=== PATIENT | male | born 1945 | race Caucasian/White ===

== ENCOUNTER 2018-06-05 05:53 | Outpatient (CLI) | payer MEDICARE, OTHER ==
[~2018-06-05] VITALS: Ht 175.3 cm; Wt 120.9 kg
--- NOTE | ~2018-06-05 | HEMODYNAMI ---
PATIENT:RODRIGUEZ BLOOM MEDICAL RECORD: [id number] : 45 LOCATION:[facility] ADMISSION DATE: 06/05/18 Generatedon:06/05/20188:29 Patient name: RODRIGUEZ BLOOM Patient #: [id number] SSN: DO B: 1945 Date of study: 06/05/2018 Page: Of Hemodynamic Procedure Report Patient Data Patient Demographics Procedure consent was obtained First Name: RODRIGUEZ Gender: Male Last Name: WOLF : 1945 Middle Initial: C Age: 73 year(s) Patient #: [id number] Race: Unknown Additional ID: [id number] Contact details [address]: [address] [place] [address] State: [place] City: [place] Zip code: [address] Past Medical History Allergies Allergen Reaction Date Comments Reported Other allergy 06/05/2018 Iodine, Codeine Admission Admission Data Admission Date: 06/05/2018 Admission Time: 5:53 Lab Results Lab Result Date: 06/05/2018 Lab Result Time: 6:30 Biochemistry Name Units Result Min Max BUN mg/dl 18 --(---*)-- 7 18 Creatinine mg/dl 1.1 --(--*-)-- 0.6 1.3 CBC Name Units Result Min Max Hematocrit % 34.3 *-(----)-- 42 54 Hemoglobin g/dl 11.5 *-(----)-- 13.5 17.5 Procedure Procedure Types Cath Procedure Diagnostic Procedure LHC LHC w/Coronaries Aortic Root Angiography Sedation Charges Moderate Sedation up to 15 minutes Procedure Description Procedure Date Procedure Date: 06/05/2018 Procedure Start Time: 8:07 Procedure End Time: 8:26 Procedure Staff Name Function Drew Lyles MD Performing Physician César Monahan RN Nurse Fallon Harris RT Scrub John Rodriguez RT Monitor Procedure Data Cath Procedure Fluoroscopy Diagnostic fluoroscopy Total fluoroscopy Time: 4.5 time: 4.5 min min Diagnostic fluoroscopy Total fluoroscopy dose: dose: 1398 mGy 1398 mGy Contrast Material Contrast Material Type Amount (ml) Isovue 300 104 Entry Location Entry Primary Successful Side Size Upsize Upsize Entry Closure Tuttle ccessful Closure Location (Fr) 1 (Fr) 2 (Fr) Remarks Device Remarks Radial Right 6 Fr Mechanical artery Short Compression Estimated blood loss: 5 ml Diagnostic catheters Device Type Used For End Catheter Placement DIAGNOSTIC Marco A 110cm Procedure 5Fr catheter ([id number]) DIAGNOSTIC Loleta 110cm 5 Procedure Fr catheter ([id number]) Procedure Complications No complications Procedure Medications Medication Administration Route Dosage 0.9% NaCl I.V. 100 ml/hr Oxygen etCO2 Nasal cannula 2 l/min Heparin Flush Bag added to field 2 bags (1000units/500ml NS) Lidocaine 2% added to field 20 Radial Cocktail added to field 1 syringe (Verapomil 2mg/Nitro 400mcg/Heparin 1500units) Versed I.V. 1 mg Fentanyl I.V. 50 mcg Versed I.V. 1 mg Fentanyl I.V. 50 mcg Radial Cocktail I.A. 1 syringe (Verapomil 2mg/Nitro 400mcg/Heparin 1500units) Versed I.V. 2 mg Hemodynamics Rest HGB: 11.5 (g/dl) Heart Rate: 67 (bpm) Pressure Samples Time Site Value (mmHg) Purpose Heart Use Rate(bpm) 8:10 LV 139/-2,8 Snapshot 91 8:10 LV 126/5,14 Snapshot 87 8:11 AO 108/60(80) Pullback 77 8:11 LV 139/1,11 Pullback 77 Gradients Valve Time Site 1 Site 2 Mean SEP/DFP Peak To Heart Use (mmHg) (sec/min) Peak Rate (mmHg) (bpm) Aortic 8:11 LV AO 9 22 31 77 139/1,11 108/60(80) Calculations Valve P-P Mean Valve Index Valve Source Name Gradient Area Flow (cm2) Aortic 31 9 31 9 Snapshots Pre Cath Intra NCS Post Cath Vital Signs Time Heart Resp SPO2 etCO2 NIBP (mmHg) Rhythm Pain Sedation Rate (ipm) (%) (mmHg) Status Level (bpm) 7:51:52 65 16 95 0 155/82(119) NSR 0 (11) 10(A) , No pain 7:56:34 65 20 94 33 147/82(121) NSR 0 (11) 10(A) , No pain 8:01:21 64 15 94 39 139/72(105) NSR 0 (11) 10(A) , No pain 8:06:08 65 15 95 35.3 145/77(114) NSR 0 (11) 10(A) , No pain 8:11:36 77 16 95 0 120/49(78) NSR 0 (11) 10(A) , No pain 8:16:12 68 15 93 31.5 117/70(95) NSR 0 (11) 10(A) , No pain 8:20:53 65 16 94 40.5 131/72(107) NSR 0 (11) 9(A) , No pain 8:25:37 65 16 95 15.7 142/74(110) NSR 0 (11) 9(A) , No pain Medications Time Medication Route Dose Verified Delivered Reason Notes Effectiveness by by 7:56:11 0.9% NaCl I.V. 100 César César Per ml/hr Taniya Monahan physician RN RN 7:56:20 Oxygen etCO2 2 l/min César César Per Nasal Taniya Monahan physician cannula RN RN 7:56:31 Heparin Flush added 2 bags César César used for Bag to Lorigan Taniya procedure (1000units/500ml RN RN NS) 7:56:41 Lidocaine 2% added 20ml César César for local to vial Lorigan Lisetigan anesthetic RN RN 7:56:51 Radial Cocktail added 1 César César used for (Verapomil to syringe Lorigan Lisetigan procedure 2mg/Nitro RN RN 400mcg/Heparin 1500units) 7:57:00 Versed I.V. 1 mg César César for sedation Taniya Monahan RN RN 7:57:07 Fentanyl I.V. 50 mcg César César for sedation Taniya Monahan RN RN 8:06:54 Versed I.V. 1 mg César César for sedation Taniya Monahan RN RN 8:07:06 Fentanyl I.V. 50 mcg César César for sedation Taniya Monahan RN RN 8:08:59 Radial Cocktail I.A. 1 César Drew for (Verapomil syringe Taniya anderson 2mg/Nitro RN 400mcg/Heparin 1500units) 8:09:32 Versed I.V. 2 mg César Lindsey for sedation Taniya Monahan RN training coordinator Log Time Note 7:40:51 Time tracking: Regular hours (M-F 7:00 - 5:00) 7:40:56 Plan of Care:Hemodynamics will remain stable., Cardiac rhythm will remain stable., Comfort level will be maintained., Respiratory function will remain adequate., Patient/ family verbilizes understanding of procedure., Procedure tolerated without complication., Recovers from procedure without complications.. 7:40:59 César Monahan RN sent for patient. Start room use. 7:46:17 Patient received from Pre/Post Procedure Room to CCL 1 Alert and oriented. Tansferred to table in Supine position. 7:46:19 Warm blankets applied, and mary hugger turned on for patient comfort. 7:46:19 Correct patient and procedure confirmed by team. 7:46:21 Signed procedure consent form obtained from patient. 7:46:22 ECG and BP/O2 sat monitors applied to patient. 7:50:54 Vital chart was started 7:51:13 H&P Date Dictated: 05/29/2018 Within 30 days and on chart., H&P Addendum completed by physician on day of procedure. (MUST COMPLETE FOR ALL OUTPATIENTS). 7:51:14 Pre-procedure instructions explained to patient. 7:51:15 Pre-op teaching completed and patient verbalized understanding. 7:51:16 Family in waiting room. 7:51:17 Patient NPO since Midnight. 7:51:37 Patient allergic to Other allergyIodine, Codeine 7:51:39 Is the patient allergic to Iodine/contrast media? Yes. 7:51:40 Was the patient premedicated? Yes 7:51:44 Is patient on blood thinner?No 7:51:46 Patient diabetic? Yes. 7:51:47 If diabetic: On Metformin? Yes 7:51:51 If on Metformin: Last Dose? 06/03/2018 7:51:55 Previous problem with sedation/anesthesia? No ? 7:51:56 Snore? Yes 7:51:57 Sleep apnea? No 7:51:57 Deviated septum? No 7:51:58 Opens mouth fully? Yes 7:51:59 Sticks out tongue? Yes 7:52:03 Airway obstruction? Yes COPD 7:52:07 Dentures? Yes OUT 7:52:11 Modified Jesus Alberto's test Ulnar < 7 seconds 7:52:15 Patient pain scale 0/10 ?. 7:52:24 IV patent on arrival in left hand with 0.9% NaCl at [facility]. 7:53:38 Lab Result : BUN 18 mg/dl 7:53:38 Lab Result : Hemoglobin 11.5 g/dl 7:53:38 Lab Result : Creatinine 1.1 mg/dl 7:53:38 Lab Result : Hematocrit 34.3 % 7:53:40 Lab results completed and on chart. 7:53:42 Right Radial & Right Groin area was prepped with chlora-prep and draped in sterile fashion 7:53:43 Alarms reviewed by R. N. 7:53:43 Sharps counted by scrub and verified by R.N. 7:53:45 Use device set Radial Dx or PCI 7:53:46 ACIST Syringe (18042) opened to sterile field. 7:53:47 Medline Cath Pack ([id number]) opened to sterile field. 7:53:47 Bag Decanter (2002S) opened to sterile field. 7:53:48 DIAGNOSTIC WIRE .035 260cm J wire (989949) opened to sterile field. 7:53:48 ACIST Hand Control (90510) opened to sterile field. 7:53:49 ACIST Manifold (29350) opened to sterile field. 7:53:49 Tegaderm 4 x 4 (1626W) opened to sterile field. 7:53:50 MBrace Wrist Support ([id number]) opened to sterile field. 7:53:51 SHEATH 6Fr Prelude Radial ([id number]) opened to sterile field. 7:53:56 Baseline sample Acquired. 7:54:01 Rhythm: sinus rhythm 7:54:03 Full Disclosure recording started 7:54:06 Physician arrived 7:54:07 --------ALL STOP TIME OUT------ 7:54:07 Final Timeout: patient, procedure, and site verified with staff and physician. All members of the team are in agreement. 7:54:09 Right Radial & Right Groin site verified by team. 7:54:11 Physical assessment completed. ASA score P 2 - A patient with mild systemic disease as per Drew Lyles MD. 7:54:15 Sedation plan: IV Moderate Sedation Medication:Versed, Fentanyl 7:56:11 0.9% NaCl 100 ml/hr I.V. was administered by César Monahan RN; Per physician; 7:56:20 Oxygen 2 l/min etCO2 Nasal cannula was administered by César Monahan RN; Per physician; 7:56:31 Heparin Flush Bag (1000units/500ml NS) 2 bags added to field was administered by César Monahan RN; used for procedure; 7:56:41 Lidocaine 2% 20ml vial added to field was administered by César Monahan RN; for local anesthetic; 7:56:51 Radial Cocktail (Verapomil 2mg/Nitro 400mcg/Heparin 1500units) 1 syringe added to field was administered by César Monahan RN; used for procedure; 7:57:00 Versed 1 mg I.V. was administered by César Monahan RN; for sedation; 7:57:07 Fentanyl 50 mcg I.V. was administered by César Monahan RN; for sedation; 8:00:47 Zero performed for pressure channel P1 8:00:50 Zero performed for pressure channel P1 8:06:54 Versed 1 mg I.V. was administered by César Monahan RN; for sedation; 8:07:06 Fentanyl 50 mcg I.V. was administered by César Monahan RN; for sedation; 8:07:49 Procedure started. 8:07:52 Local anesthetic to right radial artery with Lidocaine 2% by Drew Lyles MD.INITIAL ACCESS ONLY 8:08:41 A 6 Fr Short sheath was inserted into the Right Radial artery 8:08:49 A DIAGNOSTIC Marco A 110cm 5Fr catheter ([id number]) was advanced over the wire and used for Procedure. 8:08:59 Radial Cocktail (Verapomil 2mg/Nitro 400mcg/Heparin 1500units) 1 syringe I.A. was administered by Drew Lyles MD; for vasodilation; 8:09:32 Versed 2 mg I.V. was administered by César Monahan RN; for sedation; 8:10:59 LV hemodynamics recorded. 8:11:03 Injector settings: Ml/sec: 5, Volume: 15, 8:11:11 EF : 50 % 8:11:12 LV gram done using MELENDREZ 8:12:18 RCA angiography performed. 8:15:39 LCA angiography performed. 8:16:37 Catheter exchanged over wire. 8:16:42 A DIAGNOSTIC Loleta 110cm 5 Fr catheter ([id number]) was advanced over the wire and used for Procedure. 8:18:26 LCA angiography performed. 8:20:31 DXT 5 PIG opened to sterile field. 8:20:35 Catheter exchanged over wire. 8:21:05 A DIAGNOSTIC DXT 5 PIG 5 Fr catheter was advanced over the wire and used for Procedure. 8:22:38 Aortic Root visualized 8:22:47 Catheter removed. 8:23:27 TR BAND Large ([id number]) opened to sterile field. 8:23:35 Sheath removed intact; hemostasis achieved with Mechanical Compression to the Right Radial artery. 8:23:37 Procedure ended.(Physican Out) 8:24:52 Fluoroscopy time 04.50 minutes. 8:24:56 Fluoroscopy dose: 1398 mGy 8:24:56 Flurop Dose total: 1398 8:25:00 Contrast amount:Isovue 300 104ml. 8:25:02 Sharps counted by scrub and verified by R.N. 8:25:04 TR band inflated with 12cc of air. 8:25:05 Insertion/operative site no bleeding no hematoma. 8:25:07 Post Procedure Pulses reassessed and unchanged 8:25:10 Post-procedure physical assessment completed. ASA score P 2 - A patient with mild systemic disease as per Drew Lyles MD. 8:25:13 Post procedure rhythm: unchanged. 8:25:15 Estimated blood loss: 5 ml 8:25:17 Post procedure instruction explained to patient.Patient verbalizes understanding. 8:25:17 Patient needs reinforcement of post procedure teaching. 8:25:24 Procedure type changed to Cath procedure, Diagnostic procedure, LHC, LHC w/Coronaries, Aortic Root Angiography, Sedation Charges, Moderate Sedation up to 15 minutes 8:26:12 Procedure and supply charges have been captured, reviewed, submitted and are correct. 8:26:14 Procedure Complication : No complications 8:26:17 Vital chart was stopped 8:26:17 See physician's report for complete and final results. 8:26:18 Report given to Pre/Post Procedure Room. 8:26:21 Patient transfered to Pre/Post Procedure Room with Stretcher. 8:26:23 Procedure ended. 8:26:23 Full Disclosure recording stopped 8:26:28 End room use (Document Last) Device Usage Item Name Manufacture Quantity Catalog Number Hospital Part Current M inimal Lot# / Charge Number Stock Stock Serial# Code ACIST Syringe Acist 1 78132 221426 303401 829037 2 0 (73379) Medical [employer] Inc Medline Cath Cardinal 1 [id number] 747769 79666 664587 5 Pack Health ([id number]) Bag Decanter Microtek 1 2001S 304384 36140 102743 5 (2001S) Medical Inc. DIAGNOSTIC WIRE St Fabien 1 311501 215951 403935 244997 3 0 .035 260cm J wire (324973) ACIST Hand Acist 1 53680 969391 113926 453422 5 Control (45149) Medical [employer] Inc ACIST Manifold Acist 1 68340 723896 159971 783296 5 (73679) Medical Systems Inc Tegaderm 4 x 4 3M 1 1626W 259846 608974 821325 5 (1626W) MBrace Wrist Advanced 1 140-0250-00 958139 89794 185731 5 Support Vascular ([id number]) Dynamics SHEATH 6Fr Merit 1 [id number] 146987 936345 927201 5 Prelude Radial Medical ([id number]) DIAGNOSTIC Terumo 1 40-5023 573231 576532 267913 5 Marco A 110cm 5Fr catheter (637882) DIAGNOSTIC Terumo 1 40-5013 886870 659273 998236 5 Loleta 110cm 5 Fr catheter (932418) DXT 5 PIG Unknown 1 0 0 TR BAND Large Terumo 1 [id number] 724438 508996 279465 4 0 ([id number]) Signature Audit [place] Stage Time Signature Unsigned Intra-Procedure 06/05/2018 John Rodriguez 8:29:47 AM RT(R) Signatures Monitor : John Rodriguez RT Signature : Date : Time : [facility] [address] [facility] [place] [address]
[2018-06-05] MEDS ORDERED: FLOMAX0.4 MG PO (06:17)
[2018-06-05] MEDS ORDERED: ZOCOR40 MG PO (06:17)
[2018-06-05] MEDS ORDERED: CELEXA20 MG PO (06:17)
[2018-06-05] MEDS ORDERED: GLUCOPHAGE500 MG PO (06:17)
[2018-06-05] MEDS ORDERED: COREG12.5 MG PO (06:17)
[2018-06-05] MEDS ORDERED: ZESTRIL40 MG PO (06:18)
[2018-06-05] MEDS ORDERED: BAYER CHEWABLE81 MG PO (06:18)
[2018-06-05] MEDS ORDERED: PEPCID AC20 MG PO (06:18)
[2018-06-05] MEDS ORDERED: FLUTICASONE PRO16 GM NASAL (06:18)
[2018-06-05] MEDS ORDERED: OMEPRAZOLE20 M1 PO (06:18)
[2018-06-05] MEDS ORDERED: FISH OIL 1,0001 CA1 PO (06:19)
[2018-06-05] MEDS ORDERED: MULTI-DAY VITAM1 TAB PO (06:19)
[2018-06-05] MEDS ORDERED: VITAMIN B-121000 MCG PO (06:19)
[2018-06-05] MEDS ORDERED: VITAMIN E400 UNI2 PO (06:19)
[2018-06-05 06:44] VITALS: BP 157/74; BMI 39.3
[2018-06-05 06:46] LABS: BASOPHILS 0.3 % (0-2); EOSINOPHILS 0.1 % (0-7); HEMATOCRIT 34.3 % (42.0-54.0); HEMOGLOBIN 11.5 g/dL (13.5-17.5); IMMATURE GRANULOCYTES 0.6 % (0-5); LYMPHOCYTES 13.1 % (15-50); MCH 29.2 pg (26.0-34.0); MCHC 33.5 g/dL (31.0-37.0); MCV 87.1 fL (80.0-100.0); MONOCYTES 9.3 % (2-11); NEUTROPHILS 76.6 % (40-80); PLATELET COUNT 178 10x3/uL (130-400); RBC 3.94 10x6/uL (4.20-6.10); RDW 13.5 % (11.5-14.5)
[2018-06-05 07:14] LABS: ANION GAP 13.9 mmol/L (8-16); CALCIUM 8.9 mg/dL (8.5-10.1); CARBON DIOXIDE 26.5 mmol/L (21.0-32.0); CREATININE - SERUM 1.1 mg/dL (0.6-1.3); POTASSIUM - SERUM 4.4 mmol/L (3.5-5.1)
[2018-06-05 12:35] VITALS: Ht 175.3 cm; Wt 120.9 kg
== END 2018-06-05 12:35 | disposition home or self-care (01) ==
LOC: D.CATH 05:53
PROVIDERS: Internal Medicine Cardiovascular Disease
DX: I25.119 Atherosclerotic heart disease of native coronary artery with unspecified angina pectoris (principal); I08.2 Rheumatic disorders of both aortic and tricuspid valves; Z01.812 Encounter for preprocedural laboratory examination

== ENCOUNTER 2018-06-13 10:00 | Inpatient (IN) | payer MEDICARE, OTHER ==
[~2018-06-13] VITALS: Ht 175.3 cm; Wt 113.8 kg
--- NOTE | ~2018-06-13 | TEE ---
PATIENT:RODRIGUEZ BLOOM MEDICAL RECORD: [id number] LOCATION:[place] [address] AGE OF PATIENT: 73 ADMISSION DATE: 06/17/18 SEX: M REFERRING PHYSICIAN: INTERPRETING PHYSICIAN: SPENCER MELCHOR MD TRANSESOPHAGEAL ECHOCARDIOGRAM Date: 06/17/18 MARTHA CHARGE Y INDICATIONS: CABG PREMEDICATIONS: PATIENT'S RESPONSE PROCEDURE DOPPLER MEASUREMENTS: LVIT LA PA RA LVOT RVOT Asc. Ao AV Gradient Peak AV Mean AV Area MV Gradient Peak MV Mean MV Area INTERPRETATION: Doppler: 2-D: COLOR FLOW DOPPLER NORMAL SALINE STUDY: MISCELLANOUS: DIAGNOSIS: PLAN: Chiller Technician:Bj Cotto Cutter Hot Knife: Tramaine FLOREZ COMMENTS: LAST PATIENT DATE OF SERVICE: 06/17/2018 PROCEDURE: Transesophageal echo evaluation of valvular structures during bypass surgery. FINDINGS: 1. Left ventricular chamber size is within normal limits. Left ventricular systolic function is normal. Overall ejection fraction estimated at 60%. 2. Left atrium, right atrium, and right ventricular chamber sizes are within TRANSESOPHAGEAL ECHOCARDIOGRAM REPORT [id number] RODRIGUEZ BLOOM normal limits. 3. Valvular structures have normal structure and motion. 4. Doppler interrogation only reveals mild mitral regurgitation, no other valvular insufficiency or stenosis. 5. No evidence of pericardial effusion or left ventricular thrombus. TRANSINT:[id number] Voice Confirmation ID: [id number] DOCUMENT ID: [id number] at 0924 CC: [id number] DICTATION DATE: 06/17/18 1109 NIGHT SUPERVISOR: 06/17/18 2344 DIS IN 06/23/18 [place] [id number] [place] [id number]
--- NOTE | ~2018-06-13 | CN ---
PATIENT NAME:RODRIGUEZ BLOOM MEDICAL RECORD: [id number] : 45 LOCATION:[facility] ADMIT DATE: 06/17/18 ACCOUNT: [id number] CONSULTING PHYSICIAN: BRANDON HECK MD REFERRING PHYSICIAN: DEVON VENEGAS MD DATE OF CONSULTATION: 06/18/2018 REASON FOR CONSULTATION: Medical management. HISTORY OF PRESENT ILLNESS: The patient is a 73-year-old gentleman who was referred to ending machine operator in March of this year. He had had shortness of breath as well as chest pain. He was seen and evaluated and felt to be a candidate for 3-vessel coronary artery bypass grafting. He was seen by Dr. Venegas who has performed coronary artery bypass grafting times 3. I have been asked to see the patient since he is a regular patient of [facility] and for medical management. PAST MEDICAL HISTORY: Significant that he has had COPD. He has had hyperlipidemia. He has had diabetes mellitus, gastroesophageal reflux, morbid obesity, BPH. The patient has had a history of asthma. FAMILY HISTORY: Mother had hypertension, also had thyroid disease. Father had Alzheimer's as well as mother having Alzheimer's. ALLERGIES: He has allergies to CODEINE. MEDICATIONS: Have been albuterol 2 puffs q.4 hours p.r.n. shortness of breath, 81 mg aspirin, carvedilol 12.5 p.o. b.i.d., Celexa 20 mg once a day, famotidine 20 mg p.o. q.h.s., fish oil 1000 mg p.o. every day, fluticasone 50 mcg 1 spray in each naris b.i.d., lisinopril 40 mg daily, metformin 500 mg p.o. b.i.d., omeprazole 20 mg b.i.d., simvastatin 40 mg once a day, tamsulosin 0.4 mg b.i.d. SOCIAL HISTORY: The patient is . He is a tier college graduate. He denies any drug use other than 3 beers a day as well as caffeine. He has been a smoker, stopped in 2004. PAST SURGICAL HISTORY: He has had an appendectomy. He has had a cholecystectomy as well. REVIEW OF SYSTEMS: GENERAL: He denies any headaches, seizure or syncope. Denies change in visual or auditory acuity. PULMONARY: He denies any shortness of breath, cough, congestion. CARDIOVASCULAR: As stated above. GASTROINTESTINAL: No chronic nausea, vomiting, melena or hematochezia. GENITOURINARY: No urgency, frequency, or dysuria. PHYSICAL EXAMINATION: VITAL SIGNS: His temperature was 99.1. His pulse is 83, respirations 19, blood pressure 122/63. GENERAL: He is alert. He is oriented times 3. HEENT: Head is normocephalic. No lesions. Ears: TMs clear. Eyes: Pupils equal, round, reactive to light. His extraocular movements are intact. His nasal cavity is clear. Oropharynx clear. NECK: Supple. There is no adenopathy. HEART: Has a regular rate. CONSULT REPORT [id number] RODRIGUEZ BLOOM LUNGS: Clear. CHEST: The patient has a healing medial sternotomy. No active bleeding is noted. Chest tubes are in place. He has had saphenous vein harvest on the right. He has no bleeding noted. LABORATORY DATA: White count is 12.8, hemoglobin 9.8, hematocrit is 29.1, and platelets were 134. Sodium is 135, potassium 4.9, chloride is 100, CO2 is 29.5, BUN 13, creatinine is 1. ASSESSMENT: Status post coronary bypass grafting times 3, history of diabetes, history of hypertension, history of COPD. PLAN: The patient is on Humalog sliding scale, we will continue. We will continue to follow with you. Thanks for the consultation. TRANSINT:[id number] Voice Confirmation ID: [id number] DOCUMENT ID: [id number] BRANDON HECK MD at 0716 CC: [id number] DICTATION DATE: 06/19/18 0758 TEST ENGINEERING MANAGER: 06/19/18 0822 DIS IN 06/23/18 [address] [place] [address]
--- NOTE | ~2018-06-13 | OP ---
PATIENT NAME: RODRIGUEZ BLOOM MEDICAL RECORD: [id number] :45 LOCATION:[facility] ADMISSION DATE:06/17/18 SURGEON: ADONIS NI MD DATE OF OPERATION: 06/17/2018 SURGEON: Adonis Ni MD SUPERVISOR CELL ROOM: SHANNON Cole OPERATIONS PERFORMED: 1. Coronary artery bypass graft times 3 (left internal mammary to LAD, reverse saphenous vein graft from aorta to second diagonal, and aorta to posterior descending artery). 2. Endoscopic saphenous vein harvest. PREOPERATIVE DIAGNOSIS: Coronary disease. POSTOPERATIVE DIAGNOSIS: Coronary disease. ANESTHESIA: General endotracheal anesthesia. ESTIMATED BLOOD LOSS: Total cardiopulmonary bypass with Cell Saver retransfusion. COMPLICATIONS: None. SPECIMENS: None. CONDITION: Stable. DISPOSITION: CV ICU. OPERATIVE FINDINGS: 1. Good quality greater saphenous vein harvested endoscopically from the right lower extremity. 2. Good quality left internal mammary artery. The LAD was a 2.0-mm vessel. Good Doppler signal after anastomosis and after reversal of heparin. 3. Second diagonal was a 2.0-mm vessel. 4. Posterior descending artery 1.5-mm severely diseased vessel. 5. Large fatty heart with left ventricular hypertrophy. 6. Evidence of bullous emphysema, left upper lobe, in a patient with former history of smoking. OPERATIVE INDICATION: Coronary disease. OPERATIVE PROCEDURE IN DETAIL: The patient was brought to the operating suite. General anesthesia was obtained. The patient was prepped and draped. Greater saphenous vein was harvested in the right leg using endoscopic technique. Side branches were divided with electrocautery. The vessel was ligated proximally and distally, and removed. Side branches were clipped. Later, the leg was closed in 2 layers. Median sternotomy incision was made. Subcutaneous tissue was divided by electrocautery. Sternum was divided with a saw. Left hemisternum was elevated. Left pleural cavity was entered. Left internal mammary artery and vein were OPERATIVE REPORT [id number] RODRIGUEZ BLOOM taken down as a pedicle graft. Sternal retractor was placed. Pericardium was opened. Heparin was given. Aorta was cannulated. Dual stage venous cannula was inserted. Internal mammary was clipped distally and made ready for anastomosis. The patient was placed on cardiopulmonary bypass. Sites for distal anastomoses were selected. The patient's temperature was allowed to drip. Cardioplegia needle was inserted in the anterior ascending aorta. The aorta was crossclamped. Cardioplegia was given antegrade and this was repeated at 15-minute intervals including down the completed vein grafts. Distal anastomosis was performed in standard technique and proximal anastomosis in single crossclamp technique with aortic root then de-aired by removing the clamp, then tying the proximal anastomoses, then deairing the vein grafts, and then restoring the flow. Proximal and distal anastomotic sites were inspected for bleeding. Atrial and ventricular pacing wires were placed. The patient was V-paced off cardiopulmonary bypass, but resumed a sinus rhythm with regular rate prior to departure off the operating room. The drains were placed in mediastinum and left pleural cavity. Protamine was given. Thorough irrigation was undertaken. Grafts lay appropriately. The pericardial fat was loosely reapproximated in the midline. Left chest was evacuated and irrigated. Left internal mammary harvest site was ensured to be hemostatic. Sternum was closed with wires. Fascia was closed. Subcutaneous tissue was closed. Skin was closed. Dermabond was placed. Needle and sponge counts were reported as correct. The patient was taken to the ICU in stable condition. TRANSINT:[id number] Voice Confirmation ID: [id number] DOCUMENT ID: [id number] ADONIS NI MD at 1742 CC: SAVANNAH STRONG M.D. [id number] DICTATION DATE: 06/17/18 1353 PASSPORT APPLICATION EXAMINER: 06/17/18 1501 ADM IN [facility] [address] [place] [id number]
[~2018-06-13 10:00] MED LIST: BAYER CHEWABLE81 MG PO; CELEXA20 MG PO; COREG12.5 MG PO; FISH OIL 1,0001 CA1 PO; FLOMAX0.4 MG PO; FLUTICASONE PRO16 GM NASAL; GLUCOPHAGE500 MG PO; MULTI-DAY VITAM1 TAB PO; OMEPRAZOLE20 M1 PO; PEPCID AC20 MG PO; VITAMIN B-121000 MCG PO; VITAMIN E400 UNI2 PO; ZESTRIL40 MG PO; ZOCOR40 MG PO
[2018-06-13] MEDS ORDERED: ALBUTEROL2.5 MG/3 M INH (10:37)
[2018-06-13 12:17] LABS: BASOPHILS 0.4 % (0-2); EOSINOPHILS 4.5 % (0-7); HEMATOCRIT 36.3 % (42.0-54.0); HEMOGLOBIN 12.2 g/dL (13.5-17.5); IMMATURE GRANULOCYTES 0.6 % (0-5); LYMPHOCYTES 28.4 % (15-50); MCH 29.4 pg (26.0-34.0); MCHC 33.6 g/dL (31.0-37.0); MCV 87.5 fL (80.0-100.0); MEAN PLATELET VOLUME 9.7 fL (7.4-10.4); MONOCYTES 7.5 % (2-11); NEUTROPHILS 58.6 % (40-80); PLATELET COUNT 166 10x3/uL (130-400); RBC 4.15 10x6/uL (4.20-6.10); RDW 13.5 % (11.5-14.5)
[2018-06-13 12:26] LABS: APPEARANCE CLEAR (CLEAR); BILIRUBIN NEGATIVE (NEGATIVE); COLOR YELLOW (YELLOW); GLUCOSE NEGATIVE (NEGATIVE); KETONE NEGATIVE (NEGATIVE); NITRITE NEGATIVE (NEGATIVE); PROTEIN NEGATIVE (NEGATIVE); SPECIFIC GRAVITY 1.015 (1.005-1.020); UROBILINOGEN NORMAL (NORMAL)
[2018-06-13 12:37] LABS: APTT 28.9 SECONDS (22.8-39.4); INR 1.04 (0.85-1.17); PROTIME 13.2 SECONDS (11.6-15.0)
[2018-06-13 13:06] LABS: ALBUMIN 3.7 g/dL (3.4-5.0); BILIRUBIN - TOTAL 0.94 mg/dL (0.2-1.3); CALCIUM 9.2 mg/dL (8.5-10.1); CARBON DIOXIDE 28.9 mmol/L (21.0-32.0); CREATININE - SERUM 1.1 mg/dL (0.6-1.3); PHOSPHOROUS 3.3 mg/dL (2.5-4.9); POTASSIUM - SERUM 4.9 mmol/L (3.5-5.1); PROTEIN - SERUM 7.1 g/dL (6.4-8.2); T4 THYROXIN - FREE 0.98 ng/dL (0.76-1.46); THYROID STIMULATING HORMONE 0.59 uIU/mL (0.36-3.74); URIC ACID 7.4 mg/dL (2.6-7.2)
[2018-06-17] VITALS (48 sets, daily range): BP systolic 105–153; BP diastolic 49–72; BMI 39.3; BMI 39.6
[2018-06-18] VITALS (52 sets, daily range): BP systolic 109–144; BP diastolic 41–80; Ht 175.3 cm; Wt 113.8 kg
[2018-06-18 06:09] LABS: HEMATOCRIT 29.1 % (42.0-54.0); HEMOGLOBIN 9.8 g/dL (13.5-17.5); MCH 29.5 pg (26.0-34.0); MCHC 33.7 g/dL (31.0-37.0); MCV 87.7 fL (80.0-100.0); MEAN PLATELET VOLUME 10.1 fL (7.4-10.4); RBC 3.32 10x6/uL (4.20-6.10); RDW 13.8 % (11.5-14.5); WBC 12.8 10x3/uL (4.8-10.8)
[2018-06-18 06:27] LABS: ALBUMIN 2.8 g/dL (3.4-5.0); ALKALINE PHOSPHATASE 23 U/L (46-116); ALT (SGPT) 32 U/L (10-68); BILIRUBIN - TOTAL 0.96 mg/dL (0.2-1.3); CALC OSMOLALITY 276 mosm/kg (275-300); CALCIUM 7.5 mg/dL (8.5-10.1); CARBON DIOXIDE 28.3 mmol/L (21.0-32.0); CHLORIDE - SERUM 105 mmol/L (98-107); GLUCOSE 154 mg/dL (74-106); POTASSIUM - SERUM 3.9 mmol/L (3.5-5.1); PROTEIN - SERUM 5.4 g/dL (6.4-8.2); SODIUM 137 mmol/L (136-145); UREA NITROGEN 13 mg/dL (7-18); eGFR NON AFRICAN AMERICAN 78 mL/min (90-120)
[2018-06-19] VITALS (27 sets, daily range): BP systolic 105–158; BP diastolic 52–81
[2018-06-19 06:16] LABS: HEMATOCRIT 30.5 % (42.0-54.0); MCH 29.3 pg (26.0-34.0); MCHC 32.8 g/dL (31.0-37.0); MCV 89.4 fL (80.0-100.0); MEAN PLATELET VOLUME 9.9 fL (7.4-10.4); RBC 3.41 10x6/uL (4.20-6.10); RDW 14.4 % (11.5-14.5); WBC 15.6 10x3/uL (4.8-10.8)
[2018-06-19 06:41] LABS: ALBUMIN 2.9 g/dL (3.4-5.0); ALKALINE PHOSPHATASE 31 U/L (46-116); ALT (SGPT) 37 U/L (10-68); BILIRUBIN - TOTAL 1.97 mg/dL (0.2-1.3); CALC OSMOLALITY 274 mosm/kg (275-300); CARBON DIOXIDE 29.5 mmol/L (21.0-32.0); CHLORIDE - SERUM 100 mmol/L (98-107); GLUCOSE 196 mg/dL (74-106); PROTEIN - SERUM 6.2 g/dL (6.4-8.2); SODIUM 135 mmol/L (136-145); UREA NITROGEN 13 mg/dL (7-18); eGFR NON AFRICAN AMERICAN 78 mL/min (90-120)
[2018-06-19 06:42] LABS: POTASSIUM - SERUM 4.9 mmol/L (3.5-5.1)
[2018-06-20] VITALS (24 sets, daily range): BP systolic 94–151; BP diastolic 54–84
[2018-06-20 05:54] LABS: HEMATOCRIT 27.9 % (42.0-54.0); HEMOGLOBIN 9.2 g/dL (13.5-17.5); MEAN PLATELET VOLUME 9.5 fL (7.4-10.4); RBC 3.17 10x6/uL (4.20-6.10); RDW 14.5 % (11.5-14.5)
[2018-06-20 05:59] LABS: WBC 10.5 10x3/uL (4.8-10.8)
[2018-06-20 06:12] LABS: ALBUMIN 2.5 g/dL (3.4-5.0); ALKALINE PHOSPHATASE 43 U/L (46-116); ALT (SGPT) 32 U/L (10-68); BILIRUBIN - TOTAL 1.31 mg/dL (0.2-1.3); CALC OSMOLALITY 270 mosm/kg (275-300); CALCIUM 8.1 mg/dL (8.5-10.1); CARBON DIOXIDE 29.9 mmol/L (21.0-32.0); CHLORIDE - SERUM 97 mmol/L (98-107); CREATININE - SERUM 0.9 mg/dL (0.6-1.3); GLUCOSE 164 mg/dL (74-106); PROTEIN - SERUM 6.1 g/dL (6.4-8.2); SODIUM 133 mmol/L (136-145); UREA NITROGEN 14 mg/dL (7-18); eGFR NON AFRICAN AMERICAN 88 mL/min (90-120)
[2018-06-20 06:14] LABS: POTASSIUM - SERUM 3.9 mmol/L (3.5-5.1)
[2018-06-21] VITALS (24 sets, daily range): BP systolic 106–146; BP diastolic 44–82
[2018-06-21 05:56] LABS: HEMATOCRIT 26.9 % (42.0-54.0); HEMOGLOBIN 8.9 g/dL (13.5-17.5); MCHC 33.1 g/dL (31.0-37.0); MCV 87.6 fL (80.0-100.0); MEAN PLATELET VOLUME 9.5 fL (7.4-10.4); RBC 3.07 10x6/uL (4.20-6.10); RDW 14.6 % (11.5-14.5); WBC 8.6 10x3/uL (4.8-10.8)
[2018-06-21 06:07] LABS: ALBUMIN 2.3 g/dL (3.4-5.0); ALKALINE PHOSPHATASE 52 U/L (46-116); ALT (SGPT) 31 U/L (10-68); BILIRUBIN - TOTAL 1.06 mg/dL (0.2-1.3); CALC OSMOLALITY 274 mosm/kg (275-300); CALCIUM 8.4 mg/dL (8.5-10.1); CARBON DIOXIDE 29.5 mmol/L (21.0-32.0); CHLORIDE - SERUM 98 mmol/L (98-107); GLUCOSE 152 mg/dL (74-106); POTASSIUM - SERUM 3.9 mmol/L (3.5-5.1); PROTEIN - SERUM 6.1 g/dL (6.4-8.2); SODIUM 135 mmol/L (136-145); eGFR NON AFRICAN AMERICAN 78 mL/min (90-120)
[2018-06-21 06:08] LABS: UREA NITROGEN 18 mg/dL (7-18)
[2018-06-22] VITALS (24 sets, daily range): BP systolic 105–148; BP diastolic 42–69
[2018-06-22 06:18] LABS: HEMATOCRIT 26.6 % (42.0-54.0); HEMOGLOBIN 8.7 g/dL (13.5-17.5); MCH 28.7 pg (26.0-34.0); MCHC 32.7 g/dL (31.0-37.0); MCV 87.8 fL (80.0-100.0); MEAN PLATELET VOLUME 9.5 fL (7.4-10.4); RBC 3.03 10x6/uL (4.20-6.10); RDW 14.7 % (11.5-14.5); WBC 7.1 10x3/uL (4.8-10.8)
[2018-06-22 07:01] LABS: ALBUMIN 2.4 g/dL (3.4-5.0); ALKALINE PHOSPHATASE 76 U/L (46-116); BILIRUBIN - TOTAL 1.14 mg/dL (0.2-1.3); CALC OSMOLALITY 273 mosm/kg (275-300); CALCIUM 8.4 mg/dL (8.5-10.1); CARBON DIOXIDE 29.9 mmol/L (21.0-32.0); CHLORIDE - SERUM 98 mmol/L (98-107); GLUCOSE 151 mg/dL (74-106); MAGNESIUM - SERUM 1.8 mg/dL (1.8-2.4); POTASSIUM - SERUM 3.8 mmol/L (3.5-5.1); PROTEIN - SERUM 6.2 g/dL (6.4-8.2); SODIUM 134 mmol/L (136-145); UREA NITROGEN 21 mg/dL (7-18); eGFR NON AFRICAN AMERICAN 78 mL/min (90-120)
[2018-06-22 07:08] LABS: ALT (SGPT) 46 U/L (10-68)
[2018-06-23] VITALS (14 sets, daily range): BP systolic 91–148; BP diastolic 48–97
[2018-06-23] MEDS ORDERED: LOPRESSOR25 MG PO (15:10)
[2018-06-23] MEDS ORDERED: LISINOPRIL2.5 MG PO (15:10)
[2018-06-23] MEDS ORDERED: K-DUR20 MEQ PO (15:23)
[2018-06-23] MEDS ORDERED: COLACE100 MG PO (15:24)
[2018-06-23] MEDS ORDERED: LASIX40 MG PO (15:25)
[2018-06-23] MEDS ORDERED: CORDARONE PO (15:26)
[2018-06-23] MEDS ORDERED: PERCOCET 5-3251 TAB PO (15:26)
== END 2018-06-23 17:31 | disposition home or self-care (01) | DRG 236 ==
LOC: D.SDCHOLD 10:00 → D.CVICU 06-17 05:00 → D.SDCHOLD 06-17 07:30 → D.CVICU 06-17 09:12 → D.SDCHOLD 06-17 10:00 → D.CVICU 06-23 17:31
PROVIDERS: Thoracic Surgery (Cardiothoracic Vascular Surgery)
PROC: 021109W Bypass Coronary Artery, Two Arteries from Aorta with Autologous Venous Tissue, Open Approach (ICD-10-PCS; 2018-06-17)
PROC: 06BP4ZZ Excision of Right Saphenous Vein, Percutaneous Endoscopic Approach (ICD-10-PCS; 2018-06-17)
PROC: 5A1221Z Performance of Cardiac Output, Continuous (ICD-10-PCS; 2018-06-17)
PROC: B24BZZ4 Ultrasonography of Heart with Aorta, Transesophageal (ICD-10-PCS; 2018-06-17)
PROC: 02100Z9 Bypass Coronary Artery, One Artery from Left Internal Mammary, Open Approach (ICD-10-PCS; principal; 2018-06-17 07:30)
DX: I25.10 Atherosclerotic heart disease of native coronary artery without angina pectoris (principal); I48.1 Persistent atrial fibrillation; I10 Essential (primary) hypertension; E11.9 Type 2 diabetes mellitus without complications; E78.5 Hyperlipidemia, unspecified; J44.9 Chronic obstructive pulmonary disease, unspecified; D64.9 Anemia, unspecified; R60.0 Localized edema

== ENCOUNTER → 2018-06-30 11:18 | Outpatient (CLI) | payer MEDICARE, OTHER ==
[2018-06-18 12:13] VITALS: BMI 40.3
[~2018-06-30 11:18] MED LIST changes: +ALBUTEROL2.5 MG/3 M INH; +COLACE100 MG PO; +CORDARONE PO; +K-DUR20 MEQ PO; +LASIX40 MG PO; +LISINOPRIL2.5 MG PO; +LOPRESSOR25 MG PO; +PERCOCET 5-3251 TAB PO
== END | disposition home or self-care (01) ==
LOC: D.CN 11:18
DX: I48.91 Unspecified atrial fibrillation (principal)

== ENCOUNTER → 2018-07-04 17:55 | Outpatient (CLI) | payer MEDICARE, OTHER ==
[2018-06-18 12:13] VITALS: BMI 40.3
== END | disposition home or self-care (01) ==
LOC: D.LABREF 17:55
DX: L76.82 Other postprocedural complications of skin and subcutaneous tissue (principal)

== ENCOUNTER → 2018-07-09 14:17 | Outpatient (CLI) | payer MEDICARE, OTHER ==
[2018-06-18 12:13] VITALS: BMI 40.3
[2018-07-09 14:54] LABS: HEMATOCRIT 33.6 % (42.0-54.0); MCHC 32.7 g/dL (31.0-37.0); MCV 85.5 fL (80.0-100.0); MEAN PLATELET VOLUME 8.6 fL (7.4-10.4); RBC 3.93 10x6/uL (4.20-6.10); RDW 14.6 % (11.5-14.5)
[2018-07-09 15:11] LABS: ALBUMIN 3.5 g/dL (3.4-5.0); ANION GAP 12.8 mmol/L (8-16); BILIRUBIN - TOTAL 0.88 mg/dL (0.2-1.3); CALCIUM 9.4 mg/dL (8.5-10.1); CARBON DIOXIDE 27.6 mmol/L (21.0-32.0); CREATININE - SERUM 1.3 mg/dL (0.6-1.3); POTASSIUM - SERUM 4.4 mmol/L (3.5-5.1); PROTEIN - SERUM 7.1 g/dL (6.4-8.2)
== END | disposition home or self-care (01) ==
LOC: D.RAD 08:30
PROVIDERS: Thoracic Surgery (Cardiothoracic Vascular Surgery)
DX: J91.8 Pleural effusion in other conditions classified elsewhere (principal); D64.9 Anemia, unspecified

== ENCOUNTER 2018-09-21 19:11 | Observation (INO) | payer MEDICARE, OTHER ==
[~2018-09-21] VITALS: Ht 175.3 cm; Wt 90.7 kg
[2018-09-21] MEDS ORDERED: CARAFATE1 G PO (19:22)
[2018-09-21] MEDS ORDERED: RANITIDINE HCL150 M1 PO (19:23)
[2018-09-21] MEDS ORDERED: PROSCAR5 MG PO (19:23)
[2018-09-21] MEDS ORDERED: EZFE 200200 MG PO (19:23)
[2018-09-21] MEDS ORDERED: ZOFRAN4 MG PO (19:23)
[2018-09-21] MEDS ORDERED: METOPROLOL TART25 MG PO (19:24)
[2018-09-21] MEDS ORDERED: CRESTOR10 MG PO (19:24)
[2018-09-21] MEDS ORDERED: AVODART0.5 MG PO (19:27)
[2018-09-21] MEDS ORDERED: VOLTAREN75 MG PO (19:28)
[2018-09-21] MEDS ORDERED: FLOMAX0.4 MG PO (19:29)
[2018-09-21] MEDS ORDERED: OMEPRAZOLE20 M1 PO (19:30)
[2018-09-21] MEDS ORDERED: CELEXA10 MG PO (19:30)
[2018-09-21 20:00] LABS: BASOPHILS 0.6 % (0-2); EOSINOPHILS 6.7 % (0-7); HEMATOCRIT 34.5 % (42.0-54.0); HEMOGLOBIN 11.2 g/dL (13.5-17.5); IMMATURE GRANULOCYTES 0.2 % (0-5); LYMPHOCYTES 21.6 % (15-50); MCH 27.1 pg (26.0-34.0); MCHC 32.5 g/dL (31.0-37.0); MCV 83.5 fL (80.0-100.0); MEAN PLATELET VOLUME 9.4 fL (7.4-10.4); MONOCYTES 12.5 % (2-11); NEUTROPHILS 58.4 % (40-80); PLATELET COUNT 241 10x3/uL (130-400); RBC 4.13 10x6/uL (4.20-6.10); RDW 17.3 % (11.5-14.5)
[2018-09-21 20:08] LABS: APTT 34.3 SECONDS (22.8-39.4); INR 1.15 (0.85-1.17); PROTIME 14.2 SECONDS (11.6-15.0)
[2018-09-21 20:15] LABS: ALBUMIN 2.9 g/dL (3.4-5.0); ALKALINE PHOSPHATASE 59 U/L (46-116); ALT (SGPT) 33 U/L (10-68); BILIRUBIN - TOTAL 1.04 mg/dL (0.2-1.3); CALC OSMOLALITY 281 mosm/kg (275-300); CALCIUM 9.3 mg/dL (8.5-10.1); CARBON DIOXIDE 25.1 mmol/L (21.0-32.0); CHLORIDE - SERUM 103 mmol/L (98-107); CREATININE - SERUM 1.4 mg/dL (0.6-1.3); GLUCOSE 136 mg/dL (74-106); POTASSIUM - SERUM 3.9 mmol/L (3.5-5.1); PROTEIN - SERUM 6.4 g/dL (6.4-8.2); SODIUM 140 mmol/L (136-145); UREA NITROGEN 16 mg/dL (7-18); eGFR NON AFRICAN AMERICAN 53 mL/min (90-120)
[2018-09-21 20:24] LABS: CKMB 0.6 U/L (0.0-3.6); CREATINE KINASE 32 UL (21-232); MAGNESIUM - SERUM 1.4 mg/dL (1.8-2.4); TROPONIN-I < 0.017 ng/mL (0.000-0.060)
[2018-09-21 20:46] VITALS: BP 94/51
[2018-09-21 21:33] VITALS: BP 111/65
[2018-09-21 23:17] LABS: % SATURATION 22 % (15-55); IRON 57 ug/dl (35-150); TOTAL IRON BIND CAPACITY 252 ug/dl (260-445); UNSAT IRON BIND CAPACITY 195 ug/dl (150-375)
[2018-09-22 00:23] VITALS: BP 122/64
[2018-09-22 04:46] VITALS: BP 120/68
[2018-09-22 05:52] VITALS: BP 123/66
[2018-09-22 07:21] VITALS: BP 128/68
[2018-09-22] MEDS ORDERED: FLUTICASONE PRO16 GM NASAL (13:53)
[2018-09-22 14:37] VITALS: BP 139/69; BMI 29.6
[2018-09-22 14:50] VITALS: Ht 175.3 cm; Wt 90.7 kg
== END 2018-09-22 18:18 | disposition home or self-care (01) ==
LOC: D.ER 19:11 → D.EDHOLD 23:34 → OBSVTIME 23:34 → D.EDHOLD 09-22 09:24 → D.WS 09-22 13:22
PROVIDERS: Family Medicine; ADMIT Family Medicine
DX: I95.1 Orthostatic hypotension (principal); D64.9 Anemia, unspecified

== ENCOUNTER 2019-06-25 07:10 | Outpatient (CLI) | payer MEDICARE, OTHER ==
[~2019-06-25] VITALS: Ht 175.3 cm; Wt 113.6 kg
--- NOTE | ~2019-06-25 | HEMODYNAMI ---
PATIENT:RODRIGUEZ BLOOM MEDICAL RECORD: [id number] : 45 LOCATION:[facility] ADMISSION DATE: 06/25/19 Generatedon:06/25/201911:03 Patient name: RODRIGUEZ BLOOM Patient #: [id number] SSN: [id number] : 1945 Date of study: 06/25/2019 Page: Of Hemodynamic Procedure Report Patient Data Patient Demographics Procedure consent was obtained First Name: RODRIGUEZ Gender: Male Last Name: WOLF : 1945 [facility] Initial: C Age: 74 year(s) Patient #: [id number] Race: SSN: [id number] Additional ID: [id number] Contact details [address]: [address] [place] [address] State: [place] City: [place] Zip code: [address] Past Medical History Allergies Allergen Reaction Date Comments Reported Other allergy 06/05/2018 Iodine, Codeine Other allergy 06/25/2019 IODINE, CODEINE,WASP VENOM Admission Admission Data Admission Date: 06/25/2019 Admission Time: 7:10 Arrival Date: 06/25/2019 Arrival Time: 9:30 Admit Source: Other Insurance Payor: Medicare, Private health insurance [facility] #: [id number] Height (in.): 69 BSA: 2.27 (m2) Height (cm.): 175.26 BMI: 36.77 (kg/m2) Weight (lbs.): 249 Weight (kg.): 112.94 Lab Results Lab Result Date: 06/25/2019 Lab Result Time: 0:00 Biochemistry Name Units Result Min Max BUN mg/dl 32 --(----)-* 7 18 Creatinine mg/dl 1.4 --(----)*- 0.6 1.3 eGFR ml/min 53 *-(----)-- 90 120 NONAFRICAN CBC Name Units Result Min Max Hemoglobin g/dl 12.4 *-(----)-- 13.5 17.5 Procedure Procedure Types Cath Procedure Peripheral Cath Diagnostic Procedure Harness Cleaner Peripheral Procedures AFRO (Diagnostic) Abd/Extremity Extremities Right Lower Ext Arterio Procedure Description Procedure Date Procedure Date: 06/25/2019 Procedure Start Time: 10:33 Procedure End Time: 10:59 Procedure Staff Name Function Drew Lyles MD Performing Physician Gabriela Dickens RT Monitor Lexii Crane RT Scrub César Monahan RN Nurse Procedure Data Cath Procedure Fluoroscopy Diagnostic fluoroscopy Total fluoroscopy Time: 2.8 time: 2.8 min min Diagnostic fluoroscopy Total fluoroscopy dose: 622 dose: 622 mGy mGy Contrast Material Contrast Material Type Amount (ml) Isovue 300 117 Entry Location Entry Primary Successful Side Size Upsize Upsize Entry Closure Succes sful Closure Location (Fr) 1 (Fr) 2 (Fr) Remarks Device Remarks Femoral Left 5 Fr Exoseal artery Estimated blood loss: 10 ml Diagnostic catheters Device Type Used For End Catheter Placement DIAGNOSTIC UF 5Fr Abdominal catheter ([id number]) aortogram with runoff Procedure Complications No complications Procedure Medications Medication Administration Route Dosage 0.9% NaCl I.V. 100 ml/hr Oxygen etCO2 Nasal cannula 2 l/min Heparin Flush Bag added to field 2 bags (1000units/500ml NS) Lidocaine 2% added to field 20 Versed I.V. 2 mg Fentanyl I.V. 100 mcg Versed I.V. 1 mg Hemodynamics Rest BSA: 2.27 (m2) HGB: 12.4 (g/dl) O2 Consumption: Estimated: 276.89 (ml/min) O2 Co nsumption indexed: Estimated:121.98 (ml/min/m) Heart Rate: 88 (bpm) Snapshots Pre Cath Intra NCS Post Cath Vital Signs Time Heart Resp SPO2 etCO2 NIBP (mmHg) Rhythm Pain Sedation Rate (ipm) (%) (mmHg) Status Level (bpm) 10:25:30 88 14 97 27.7 146/85(114) NSR 0 (11) 10(A) , No pain 10:29:44 89 14 94 31.4 128/82(102) NSR 0 (11) 10(A) , No pain 10:33:54 93 12 96 25.4 135/80(104) NSR 0 (11) 10(A) , No pain 10:38:06 95 19 95 9.7 141/80(99) NSR 0 (11) 10(A) , No pain 10:42:18 95 16 95 11.9 141/78(106) NSR 0 (11) 10(A) , No pain 10:46:28 97 15 96 29.9 134/71(91) NSR 0 (11) 9(A) , No pain 10:50:40 97 17 94 0 138/71(106) NSR 0 (11) 9(A) , No pain 10:54:51 96 16 96 30.7 136/69(99) NSR 0 (11) 9(A) , No pain 10:59:01 95 18 95 29.2 136/78(102) NSR 0 (11) 9(A) , No pain Medications Time Medication Route Dose Verified Delivered Reason Notes Eff ectiveness by by 10:23:39 0.9% NaCl I.V. 100 César César Per ml/hr Taniya Monahan physician RN RN 10:23:50 Oxygen etCO2 2 César César for low 02 Nasal l/min Lorigan Lorigan sats cannula RN RN 10:24:02 Heparin Flush added 2 César César used for Bag to bags Lorigan Lorigan procedure (1000units/500ml field RN RN NS) 10:24:16 Lidocaine 2% added 20ml César César for local to vial Lorigan Lorigan anesthetic field RN RN 10:32:40 Versed I.V. 2 mg César César for Lorigan Lorigan sedation RN RN 10:32:50 Fentanyl I.V. 100 César César for mcg Lorigan Lorigan sedation RN RN 10:36:32 Versed I.V. 1 mg César César for Lorigan Lorigan sedation RN dye penetrant testing technician Log Time Note 10:01:36 Informed consent obtained and on chart 10:01:57 Arrival Date: 06/25/2019 9:30:00 AM 10:02:04 Insurance Payor : Private health insurance, Medicare 10:02:05 Admit Source: Other 10:03:14 Patient Height : 69 inches 10:03:18 Patient Weight : 249 lbs 10:07:00 Lab Result : Creatinine 1.4 mg/dl 10:07:00 Lab Result : BUN 32 mg/dl 10:07:00 Lab Result : eGFR NONAFRICAN 53 ml/min 10:07:00 Lab Result : Hemoglobin 12.4 g/dl 10:07:15 3a) 45-59 Moderately reduced kidney function. 10:07:28 Maximum allowable contrast dose (3.7 X eGFR X 0.75)147 ml. 10:08:11 Diagnostic Cath Status : Elective 10:11:59 Procedure Status Peripheral. 10:12:02 César Monahan RN sent for patient. Start room use. 10:12:02 Time tracking: Regular hours (M-F 7:00 - 5:00) 10:12:08 Plan of Care:Hemodynamics will remain stable., Cardiac rhythm will remain stable., Comfort level will be maintained., Respiratory function will remain adequate., Patient/ family verbilizes understanding of procedure., Procedure tolerated without complication., Recovers from procedure without complications.. 10:19:56 Patient received from Pre/Post Procedure Room to [facility] 2 Alert and oriented. Tansferred to table in Supine position. 10:19:58 Warm blankets applied, and mary hugger turned on for patient comfort. 10:19:58 Correct patient and procedure confirmed by team. 10:19:58 ECG and BP/O2 sat monitors applied to patient. 10:23:23 Vital chart was started 10:23:39 0.9% NaCl 100 ml/hr I.V. was administered by César Monahan RN; Per physician; Verbal order read back and verified. 10:23:50 Oxygen 2 l/min etCO2 Nasal cannula was administered by César Monahan RN; for low 02 sats; Verbal order read back and verified. 10:24:02 Heparin Flush Bag (1000units/500ml NS) 2 bags added to field was administered by César Monahan RN; used for procedure; Verbal order read back and verified. 10:24:16 Lidocaine 2% 20ml vial added to field was administered by César Monahan RN; for local anesthetic; Verbal order read back and verified. 10:25:30 Baseline sample Acquired. 10:25:36 Rhythm: sinus rhythm 10:25:39 Full Disclosure recording started 10:25:50 H&P Date Dictated: 06/19/2019 Within 30 days and on chart., H&P Addendum completed by physician on day of procedure. (MUST COMPLETE FOR ALL OUTPATIENTS). 10:25:54 Pre-procedure instructions explained to patient. 10:25:56 Family in waiting room. 10:25:58 Patient NPO since Midnight. 10::27 Patient allergic to Other allergyIODINE, CODEINE,WASP VENOM 10::30 Is the patient allergic to Iodine/contrast media? Yes. 10:26:32 Was the patient premedicated? Yes 10:26:33 Is patient on blood thinner?No 10:26:41 Patient diabetic? No. 10::46 Previous problem with sedation/anesthesia? No ? 10::48 Snore? Yes 10:26:50 Sleep apnea? No 10:27:01 Pre procedure: right dorsailis pedis pulse Doppler 10:27:04 Pre procedure: left dorsailis pedis pulse Doppler 10:27:11 Patient pain scale 0/10 ?. 10:27:35 Lab results completed and on chart. 10:30:05 Bilateral groins area was prepped with chlora-prep and draped in sterile fashion 10:30:11 Alarms reviewed by RSylvia N. 10:30:19 Sharps counted by scrub and verified by R.N. 10:30:20 Physician arrived 10:30:21 --------ALL STOP TIME OUT------ 10:30:22 Final Timeout: patient, procedure, and site verified with staff and physician. All members of the team are in agreement. 10:30:44 Bilateral groins site verified by team. 10:30:48 Fire Safety Assessment: A--An alcohol-based skin anteseptic being used preoperatively., C--Open oxygen or nitrous oxide is being used., D--An ESU, laser, or fiber-optic light is being used. 10:30:51 Physical assessment completed. ASA score P 3 - A patient with severe systemic disease as per Drew Lyles MD. 10:30:59 3a) 45-59 Moderately reduced kidney function. 10:31:28 Sedation plan: IV Moderate Sedation Medication:Versed, Fentanyl 10:31:34 Use device set Femoral Dx 10:32:40 Versed 2 mg I.V. was administered by César Monahan RN; for sedation; Verbal order read back and verified. 10:32:50 Fentanyl 100 mcg I.V. was administered by César Monahan RN; for sedation; Verbal order read back and verified. 10:33:03 Procedure started. 10:33:12 Local anesthetic to left femerol artery with Lidocaine 2% by Drew Lyles MD.INITIAL ACCESS ONLY 10:36:32 Versed 1 mg I.V. was administered by César Monahan RN; for sedation; Verbal order read back and verified. 10:36:41 A 5 Fr sheath was inserted into the Left Femoral artery 10:37:34 J wire advanced. 10:37:37 ACIST Syringe (07793) opened to sterile field. 10:37:37 Bag Decanter (2002S) opened to sterile field. 10:37:38 Medline Cath Pack ([id number]) opened to sterile field. 10:37:40 ACIST Hand Control (83528) opened to sterile field. 10:37:40 ACIST Manifold (37412) opened to sterile field. 10:37:44 Tegaderm 4 x 4 (1626W) opened to sterile field. 10:37:46 SHEATH 5FR [place] (BCU818) opened to sterile field. 10:37:47 EMERALD Guide Wire (946-128) opened to sterile field. 10:38:15 Zero performed for pressure channel P1 10:42:40 A DIAGNOSTIC UF 5Fr catheter ([id number]) was advanced over the wire and used for Abdominal aortogram with runoff. 10:43:50 Abdominal angiogram w/ runoff was performed. 10:48:53 Catheter removed. 10:49:27 A 5 FrFr IM catheter was inserted over the wire. 10:49:45 Right leg runoff performed. 10:54:11 Catheter removed. 10:54:25 Sheath removed intact; hemostasis achieved with Exoseal to the Left Femoral artery. 10:54:29 EXOSEAL 5Fr (EX500) opened to sterile field. 10:54:33 Procedure ended.(Physican Out) 10:54:43 Fluoroscopy time 02.80 minutes. 10:54:49 Flurop Dose total: 622 10:54:49 Fluoroscopy dose: 622 mGy 10:54:55 Dose Area Product 21097 mGy/cm. 10:55:01 Contrast amount:Isovue 300 117ml. 10:55:04 Maximum allowable dose exceeded? No. 10:55:07 Sharps counted by scrub and verified by R.N. 10:55:08 Insertion/operative site no bleeding no hematoma. 10:55:15 Post left femerol artery:stable 10:55:32 Post Procedure Pulses reassessed and unchanged 10:55:39 Post-procedure physical assessment completed. ASA score P 3 - A patient with severe systemic disease as per Drew Lyles MD. 10:55:43 Post procedure rhythm: unchanged. 10:55:49 Estimated blood loss: 10 ml 10:56:02 Post procedure instruction explained to patient.Patient verbalizes understanding. 10:57:06 Procedure type changed to Cath procedure, Peripheral Cath Diagnostic Procedure, Harness Cleaner Peripheral Procedures, AFRO (Diagnostic), Abd/Extremity, Extremities, Right Lower Ext Arterio 10:57:08 Procedure and supply charges have been captured, reviewed, submitted and are correct. 10:59:17 Procedure Complication : No complications 10:59:20 Vital chart was stopped 10:59:31 AFRO Findings: PVD: surgery consult 10:59:36 See physician's report for complete and final results. 10:59:39 Report given to Pre/Post Procedure Room. 10:59:43 Patient transfered to Pre/Post Procedure Room with Stretcher. 10:59:45 Procedure ended. 10:59:45 Full Disclosure recording stopped 11:01:52 End room use (Document Last) 11:02:22 End room use (Document Last) 11:03:02 End room use (Document Last) Device Usage Item Name Manufacture Quantity Catalog Hospital Part Current Minimal L ot# / Number Charge Number Stock Stock Serial# Code ACIST Acist 1 20844 654897 073592 344140 20 Syringe Medical (22572) Systems Inc Bag Microtek 1 170840 06377 487761 5 Decanter Medical Inc. () Medline Medline 1 [id number] 018334 31127 450985 5 Cath Pack ([id number]) ACIST Hand Acist 1 60089 939996 777476 322290 5 Control Medical (43816) Systems Inc ACIST Acist 1 29465 102348 955777 955594 5 Manifold Medical (18999) Systems Inc Tegaderm 4 3M 1 1626W 116868 227002 547476 5 x 4 (1626W) SHEATH 5FR Terumo 1 NWC764 925327 675566 482485 5 [place] (GDK812) EMERALD Cardinal 1 502-455 896494 539178 279457 5 Guide Wire Health (502-150) DIAGNOSTIC Cardinal 1 [id number] 350386 809818 794639 10 UF 5Fr Health catheter (371181W8) EXOSEAL 5Fr Cardinal 1 EX500 035799 569688 362178 10 (EX500) Health Signature Audit Novi Stage Time Signature Unsigned Intra-Procedure 06/25/2019 Gabriela Dickens 11:00:50 AM RT(R) RT(R) 06/25/2019 11:01:49 AM Intra-Procedure 06/25/2019 César 11:02:22 AM Taniya RN Intra-Procedure 06/25/2019 Gabriela Dickens 11:03:02 AM RT(R) Intra-Procedure 06/25/2019 Drew Lyles MD 11:03:28 AM Signatures Performing Physician : Signature : Drew Lyles MD Date : Time : Monitor : Gabriela Dickens Signature : RT Date : Time : Nurse : César Monahan Signature : RN Date : Time : [facility] [address] [facility] [place] [address]
[~2019-06-25 07:10] MED LIST changes: +AVODART0.5 MG PO; +CARAFATE1 G PO; +CELEXA10 MG PO; +CRESTOR10 MG PO; +EZFE 200200 MG PO; +METOPROLOL TART25 MG PO; +PROSCAR5 MG PO; +RANITIDINE HCL150 M1 PO; +VOLTAREN75 MG PO; +ZOFRAN4 MG PO
[2019-06-25] MEDS ORDERED: NEURONTIN 300300 MG PO (07:30)
[2019-06-25] MEDS ORDERED: LANTUS SOL100 UNIT/1 SC ×2 (07:30→07:31)
[2019-06-25] MEDS ORDERED: NOVOLOG100 UNIT/1 SC (07:31)
[2019-06-25] MEDS ORDERED: ROPINIROLE HCL1 MG PO (07:32)
[2019-06-25] MEDS ORDERED: ISOSORBIDE MONO30 M1 PO (07:32)
[2019-06-25] MEDS ORDERED: SODIUM BICARBO325 MG PO (07:33)
[2019-06-25] MEDS ORDERED: LIPITOR20 MG PO (07:34)
[2019-06-25] MEDS ORDERED: COZAAR25 MG PO (07:34)
[2019-06-25] MEDS ORDERED: LINZESS72 MCG PO (07:34)
[2019-06-25] MEDS ORDERED: OMEPRAZOLE40 MG PO (07:35)
[2019-06-25] MEDS ORDERED: PREDNISONE20 MG PO (07:38)
[2019-06-25] MEDS ORDERED: HYDROCHLOROTH12.5 M1 PO (07:38)
[2019-06-25] MEDS ORDERED: RANITIDINE HCL150 M1 PO (07:39)
[2019-06-25] MEDS ORDERED: CRESTOR10 MG PO (07:39)
[2019-06-25] MEDS ORDERED: PROSCAR5 MG PO (07:39)
[2019-06-25] MEDS ORDERED: CELEXA20 MG PO (07:40)
[2019-06-25] MEDS ORDERED: OMEPRAZOLE20 M1 PO (07:40)
[2019-06-25] MEDS ORDERED: FLUTICASONE PRO16 GM NASAL (07:40)
[2019-06-25] MEDS ORDERED: LISINOPRIL20 MG PO (07:41)
[2019-06-25] MEDS ORDERED: THEREMS-M1 TAB PO (07:41)
[2019-06-25 07:55] VITALS: BP 151/79; Ht 175.3 cm; Wt 113.6 kg
[2019-06-25 08:04] LABS: BASOPHILS 0.3 % (0-2); EOSINOPHILS 1.4 % (0-7); HEMATOCRIT 37.2 % (42.0-54.0); HEMOGLOBIN 12.4 g/dL (13.5-17.5); IMMATURE GRANULOCYTES 0.7 % (0-5); LYMPHOCYTES 20.3 % (15-50); MCHC 33.3 g/dL (31.0-37.0); MCV 87.1 fL (80.0-100.0); MEAN PLATELET VOLUME 9.4 fL (7.4-10.4); MONOCYTES 4.1 % (2-11); NEUTROPHILS 73.2 % (40-80); RBC 4.27 10x6/uL (4.20-6.10); WBC 5.8 10x3/uL (4.8-10.8)
[2019-06-25 08:06] LABS: PLATELET COUNT 150 10x3/uL (130-400)
[2019-06-25 08:27] LABS: ANION GAP 15.8 mmol/L (8-16); CALCIUM 8.7 mg/dL (8.5-10.1); CARBON DIOXIDE 23.3 mmol/L (21.0-32.0); CREATININE - SERUM 1.4 mg/dL (0.6-1.3); POTASSIUM - SERUM 4.1 mmol/L (3.5-5.1)
--- NOTE | 2019-06-25 11:27 | NUR ---
PT DENIES ANY C/O. HOB IS FLAT, DRESSING CDI LEFT GROIN, PEDAL PULSES PALPABLE. NSR, RATE IS 91, BP IS 131/73. RESP WTIH EASE ON O2 AT 2LPM VIA NC. DR MISTRY HAS ROUNDED ON PT, PT'S AT BEDSIDE. HOB IS FLAT, BED LOCKED AND LOW, SIDE RAILS UP X2.
--- NOTE | 2019-06-25 12:03 | NUR ---
DRESSING CDI LEFT GROIN, PEDAL PULSES PALPABLE. PT DENIES ANY C/O. VSS. HOB FLAT, AT BEDSIDE. ALTON SIPS OF WATER.
--- NOTE | 2019-06-25 12:37 | NUR ---
HOB ELEVATED 30 DEGREES, SANDWICH AND PO FLUIDS AT BEDSIDE. DRESSING CDI LEFT GROIN, PEDAL PULSE 2+. DC INSTRUCITONS REVIEWED WITH PT AND WHO VERBALIZE UNDERSTANDING. VSS.
--- NOTE | 2019-06-25 13:15 | NUR ---
1300 HOB FULLY ELEVATED, DRESSING REMAINS CDI LEFT GROIN, PEDAL PULSES PALPABLE. PT IS ALERT AND HAS TOLERATED 100% OF SANDWICH AND PO FLUIDS. [id number] AT BEDSIDE.
--- NOTE | 2019-06-25 13:36 | NUR ---
1320 IV DC'D WITH CATH INTACT. DRESSING REMAINS CDI TO RIGHT GROIN, AREA IS SOFT AND NONTENDER. PEDAL PULSES PALPABLE. PT IS ALERT AND DENIES ANY C/O CHEST PAIN. NURSE ASSISTING PT WITH DRESSING FOR DC TO HOME. 1335 PT ESCORTED TO PRIVATE AUTO VIA WC BY NURSE WITH [id number] DRIVING HIM HOME. PT HAS ALL PERSONAL BELONGINGS AND DC INSTRUCTIONS AT TIME OF DISCHARGE, IS ALERT AND DENIES ANY C/O.
== END 2019-06-25 13:35 | disposition home or self-care (01) ==
LOC: D.CATH 07:10
PROVIDERS: ATTEND Internal Medicine Cardiovascular Disease
DX: I70.213 Atherosclerosis of native arteries of extremities with intermittent claudication, bilateral legs (principal)

== ENCOUNTER 2019-07-14 14:05 | Inpatient (IN) | payer MEDICARE, OTHER ==
[~2019-07-14] VITALS: Ht 175.3 cm; Wt 119.5 kg
[~2019-07-14 14:05] MED LIST changes: +COZAAR25 MG PO; +HYDROCHLOROTH12.5 M1 PO; +ISOSORBIDE MONO30 M1 PO; +LANTUS SOL100 UNIT/1 SC; +LINZESS72 MCG PO; +LIPITOR20 MG PO; +LISINOPRIL20 MG PO; +NEURONTIN 300300 MG PO; +NOVOLOG100 UNIT/1 SC; +OMEPRAZOLE40 MG PO; +PREDNISONE20 MG PO; +ROPINIROLE HCL1 MG PO; +SODIUM BICARBO325 MG PO; +THEREMS-M1 TAB PO
[2019-07-20] MEDS ORDERED: FERROUS SULFAT325 MG PO (08:54)
[2019-07-20] MEDS ORDERED: HYDROCHLOROTH12.5 M1 PO (08:55)
[2019-07-20 10:28] LABS: HEMATOCRIT 37.1 % (42.0-54.0); HEMOGLOBIN 12.4 g/dL (13.5-17.5); MCH 29.7 pg (26.0-34.0); MCHC 33.4 g/dL (31.0-37.0); MEAN PLATELET VOLUME 9.9 fL (7.4-10.4); RBC 4.17 10x6/uL (4.20-6.10); RDW 14.8 % (11.5-14.5); WBC 5.9 10x3/uL (4.8-10.8)
[2019-07-20 10:39] LABS: ALBUMIN 3.9 g/dL (3.4-5.0); ANION GAP 8.7 mmol/L (8-16); BILIRUBIN - TOTAL 0.71 mg/dL (0.2-1.3); CALCIUM 9.3 mg/dL (8.5-10.1); CARBON DIOXIDE 27.9 mmol/L (21.0-32.0); CREATININE - SERUM 1.3 mg/dL (0.6-1.3); POTASSIUM - SERUM 4.6 mmol/L (3.5-5.1); PROTEIN - SERUM 7.1 g/dL (6.4-8.2)
[2019-07-20 10:41] LABS: APTT 28.2 SECONDS (22.8-39.4); INR 1.03 (0.85-1.17)
--- NOTE | 2019-07-20 10:45 | NUR ---
DAY NOTES: JHOANA CELIS RN NOTIFIED PATIENT INQUIRING WHETHER HE NEEDS TO BE PRE-MEDICATED PRIOR TO SURGERY DUE TO IODINE CONTRAST ALLERGY. JHOANA STATES SHE WILL CALL PATIENT TO FOLLOW UP. SHER BERNAL AT OFFICE NOTIFIED OF VARIANCE IN BP >20MM. RT 148/72, LT 125/73. STATES SHE WILL INFORM RN.
[2019-07-20 12:14] LABS: APPEARANCE CLEAR (CLEAR); BILIRUBIN NEGATIVE (NEGATIVE); COLOR YELLOW (YELLOW); GLUCOSE NEGATIVE (NEGATIVE); KETONE NEGATIVE (NEGATIVE); NITRITE NEGATIVE (NEGATIVE); PROTEIN NEGATIVE (NEGATIVE); UROBILINOGEN NORMAL (NORMAL)
[2019-07-22] VITALS (62 sets, daily range): BP systolic 114–153; BP diastolic 47–91; BMI 37.2; BMI 38.6
[2019-07-22 11:25] LABS: HEMATOCRIT 32.9 % (42.0-54.0); HEMOGLOBIN 11.2 g/dL (13.5-17.5)
--- NOTE | 2019-07-22 12:02 | NUR ---
PT RECIEVED FROM OR ALERT, ORIENTED, PLACED ON 6L O2 L SUBCLAVIAN CVL DRESSING CDI SEE IV FLOWSHEET, L GROIN DRESSING CDI, PULSES PALPABLE AND DOPPLERED, PT COMPLAINING OF BACK PAIN, MORPHINE MOBILE WEB APPLICATION DEVELOPER SET UP AND EDUCATED ON USE, DR MERCEDES AWARE OF BACK PAIN, CRITICORE DRAINING, PT DENIES ALL NEEDS, FAMILY UPDATED BY DR MERCEDES, BED ALARM ON, WILL CONTINUE TO MONITOR
--- NOTE | 2019-07-22 14:32 | NUR ---
PT TOLERATING CLEAR LIQUIDS WELL, PAIN MANAGED WITH BAG WORKER, PULSES PALPABLE AND DOPPLERED
--- NOTE | 2019-07-22 17:44 | NUR ---
PT ATE 75% DINNER, DENIES ALL NEEDS
--- NOTE | 2019-07-22 19:00 | NUR ---
REPORT RECEIVED AT BEDSIDE, SHIFT ASSESSMENT COMPLETE, PT AWAKE AND ALERT, DENIES PAIN OR NEEDS AT THIS TIME, HEAD BAKER PAIN CONTROL REVIEWED WITH PT AND RETURNED DEMONSTRATION OF USE, RT FEMORAL INCISION SITE C/D/I SOFT TO PALPATION, RIGHT RADIAL ART LINE ZEROED WITH GOOD WAVEFORM ON CM, SCD'S ON BLE, PPP, VSS, REPOSITIONED IN BED, HOB ELEVATED PER ORDERS, WILL CONTINUE TO MONITOR
--- NOTE | 2019-07-22 20:38 | MORECARE ---
CASE MANAGEMENT DISCHARGE SUMMARY PATIENT: RODRIGUEZ BLOOM UNIT: [id number] ADM DATE: 07/22/19 AGE: 74 : 45 SEX: M ROOM/BED: [facility] AUTHOR: BOOGIE ANDREA PHYSICIAN: REFERRING PHYSICIAN: LUIS MERCEDES MD DATE OF SERVICE: 07/22/19 Discharge Plan Patient Name: RODRIGUEZ BLOOM Facility: [facility]:[place] : 1945 Planned Disposition: Home Anticipated Discharge Date: Discharge Date: Expected LOS: Initial Reviewer: [email or web address] Initial Review Date: 07/22/2019 Generated: 07/22/19 9:38 pm Patient Name: RODRIGUEZ BLOOM Page 48284 at 2037 All edits/amendments must be made on the electronic document DICTATION DATE: 07/22/192037 PLANTING MATERIAL REMOVER: JACOBO 07/22/192037 RPT#: [id number] DC DATE: STATUS: ADM IN [facility] [address] [place] [address] END OF REPORT
--- NOTE | 2019-07-22 20:45 | MORECARE ---
CASE MANAGEMENT DISCHARGE SUMMARY PATIENT: RODRIGUEZ BLOOM UNIT: [id number] ADM DATE: 07/22/19 AGE: 74 : 45 SEX: M ROOM/BED: D[facility] AUTHOR: ZULLY,DOC PHYSICIAN: REFERRING PHYSICIAN: LUIS MERCEDES MD DATE OF SERVICE: 07/22/19 Discharge Plan Patient Name: RODRIGUEZ BLOOM Facility: [facility]:[place] : 1945 Planned Disposition: Home Anticipated Discharge Date: Discharge Date: Expected LOS: Initial Reviewer: [email or web address] Initial Review Date: 07/22/2019 Generated: 07/22/19 9:45 pm Comments DCP- Discharge Planning Updated by [email or web address]: Roxy Smalls on 07/22/19 7:[address] Patient Name: RODRIGUEZ BLOOM Admission Status: Urgent Accout number: [id number] Admission Date: 07-22-2019 : 1945 Admission Diagnosis: Attending: LUIS MERCEDES Current LOS: 1 Anticipated DC Date: Planned Disposition: Home Primary Insurance: MEDICARE A & B Discharge Planning Comments: CM met with patient at bedside after explaining CM role and obtaining verbal consent. Patient lives at home with his Emani where he is independent with his care and plans to return there upon discharge. Patient feels this would be a safe discharge. CM discussed availability / needs of home health and medical equipment. Patient denies any discharge needs at this time. Patient states he will have his family drive him home upon discharge. CM will continue to follow and assist as needed with discharge planning / needs. Wrapping Machine Operator: Roxy Smalls DCPIA - Discharge Planning Initial Assessment Updated by [email or web address]: Roxy Smalls on 07/22/19 8:39 pm * Is the patient Alert and Oriented? Yes * How many steps to enter\exit or inside your home? * PCP MARIA R * Pharmacy [facility] - MAIL ORDER * Preadmission Environment Home with Family * ADLs Independent * Equipment None * List name and contact numbers for known caregivers / representatives who currently or will assist patient after discharge: EMANI BLOOM -- [phone] OR [phone] * Verbal permission to speak to the caregivers and representatives has been obtained from the patient. Yes * Community resources currently utilized None * Additional services required to return to the preadmission environment? No * Can the patient safely return to the preadmission environment? Yes * Has this patient been hospitalized within the prior 30 days at any hospital? No Last DP export: 07/22/19 7:38 p Patient Name: RODRIGUEZ BLOOM Page 96533 at 204 All edits/amendments must be made on the electronic document DICTATION DATE: 07/22/192044 POLICE JUSTICE: JACOBO 07/22/192044 RPT#: [id number] DC DATE: STATUS: ADM IN [facility] [address] [place] [address] END OF REPORT
--- NOTE | 2019-07-22 21:00 | NUR ---
MEDS GIVEN PER MAR/ORDERS, NO ACUTE S/S OF DISTRESS, PT ABLE TO SWALLOW MEDS WITHOUT DIFFICULTY, VSS, PPP, FLACO CONTINUE TO MONITOR
--- NOTE | 2019-07-22 23:00 | NUR ---
REASSESSMENT COMPLETE SEE FLOW SHEET FOR FURTHER, NO ACUTE CHANGE FROM PRIOR ASSESSMENT, PPP, VSS, INCISION SITE C/D/I, CALL LIGHT IN REACH, CUP OF WATER GIVEN PER REQUEST, WILL CONTINUE TO MONITOR
[2019-07-23] VITALS (66 sets, daily range): BP systolic 105–143; BP diastolic 50–68; Ht 175.3 cm; Wt 119.5 kg
--- NOTE | 2019-07-23 03:00 | NUR ---
REASSESSMENT COMPLETE PER FLOW SHEET, NO ACUTE CHANGES NOTED FROM PRIOR ASSESSMENT, PT AWAKE AND ALERT, DENIES NEEDS AT THIS TIME, FIBERLINE SUPERVISOR PAIN MEDS, LEFT GROIN SITEAND DRSG C/D/I, REPOSITIONED IN BED FOR COMFORT, VSS, WILL CONTINUE TO MONITOR
--- NOTE | 2019-07-23 05:30 | NUR ---
PT REFUSED CHG BATH AT THIS TIME, STATED HE WOULD LIKE TO WAIT FOR TO HELP DURING VISIT IN MORNING, NO FURTHER AT THIS TIME, WILL NOTIFY DAY SHIFT RN
[2019-07-23 06:42] LABS: ALBUMIN 3.3 g/dL (3.4-5.0); ANION GAP 12.9 mmol/L (8-16); BILIRUBIN - TOTAL 0.82 mg/dL (0.2-1.3); CALCIUM 7.8 mg/dL (8.5-10.1); CARBON DIOXIDE 25.9 mmol/L (21.0-32.0); CREATININE - SERUM 1.3 mg/dL (0.6-1.3); POTASSIUM - SERUM 3.8 mmol/L (3.5-5.1); PROTEIN - SERUM 6.3 g/dL (6.4-8.2)
[2019-07-23 07:06] LABS: HEMATOCRIT 32.4 % (42.0-54.0); HEMOGLOBIN 10.8 g/dL (13.5-17.5); MCH 29.7 pg (26.0-34.0); MCHC 33.3 g/dL (31.0-37.0); MEAN PLATELET VOLUME 9.6 fL (7.4-10.4); RBC 3.64 10x6/uL (4.20-6.10); RDW 14.9 % (11.5-14.5); WBC 9.2 10x3/uL (4.8-10.8)
--- NOTE | 2019-07-23 09:05 | NUR ---
PER DR CORDERO NURSE MUKESH ELY DC FOLEY AND GET PT OUT OF BED.
--- NOTE | 2019-07-23 10:20 | NUR ---
A LINE DCD, PRESSURE HELD FOR 5 MIN BLEEDING STILL NOTED. PRESSURE CONTINUED TO BE HELD FOR [address] MERCEDES NOTIFIED OF THIS STATED TO USE A TR-BAND TO SITE. TR-BAND PLACED PER ORDERS. TOTAL PRESSURE HELD 40 MIN BEFORE TR BAND PLACED. NO CURRENT BLEEDING NOTED WITH TR-BAND IN PLACE. WILL CONTINUE TO CLOSELY OBSERVE. ALSO TITRATING CLEVIPREX TO ORDER, SEE IV FLOWSHEET. WILL CONTINUE PLAN OF CARE.
--- NOTE | 2019-07-23 10:43 | NUR ---
REEVES DC AT THIS TIME PER ORDERS. CATHETER TIP INTACT. URINAL PROVIDED. VSS. WILL CONTINUE PLAN OF CARE.
--- NOTE | 2019-07-23 12:25 | NUR ---
TR-BAND REMOVED AT THIS TIME AFTER PRESSURE STEADILY REMOVED. NO CURRENT S/S BLEEDING OR EDEMA TO SITE. PT UP IN CHAIR EATING LUNCH. NO ACUTE DISTRESS NOTED. WILL CONTINUE PLAN OF CARE.
--- NOTE | 2019-07-23 14:23 | NUR ---
CONTINENT VOID AT THIS TIME VIA TOILET. PT PROVIDED OWN LAWANDA CARE. NO ACUTE DISTRESS NTOED. WILL CONTINUE PLAN OF CARE.
--- NOTE | 2019-07-23 14:48 | NUR ---
UP IN CHAIR AT THIS TIME BESIDE BED. NO ACUTE DISTRESS NOTED. VSS. WILL CONTINUE PLAN OF CARE.
--- NOTE | 2019-07-23 16:06 | NUR ---
AT BEDSIDE AT THIS TIME. NO ACUTE DISTRESS NOTED. VSS. CALL LIGHT IN REACH. WILL CONTINUE PLAN OF CARE.
--- NOTE | 2019-07-23 18:26 | NUR ---
UP IN CHAIR WATCHING TV AT THIS TIME. NO ACUTE DISTRESS NOTED. VSS. WILL CONTINUE PLAN OF CARE.
--- NOTE | 2019-07-23 19:00 | NUR ---
REPORT RECEIVED, SHIFT ASSESSMENT COMPLETE PER FLOW SHEET, PT AAOx4 DENIES PAIN OR NEEDS, SITTING UP IN CHAIR, VSS, SINUS RHYTHM ON CM, LEFT SUBCLAVIAN CVL DRSG C/D/I, SANJIV CALENDER RUNNER REVIEWED WITH PT, CALL LIGHT IN REACH, WILL CONTINUE TO MONITOR
--- NOTE | 2019-07-23 23:00 | NUR ---
REASSESSMENT COMPLETE SEE FLOW SHEET, NO ACUTE CHANGE NOTED FROM PRIOR ASSESSMENT, PTREPOSITIONED IN BED FOR COMFORT, VSS, WILL CONTINUE TO MONITOR
[2019-07-24] VITALS (25 sets, daily range): BP systolic 101–147; BP diastolic 52–74
--- NOTE | 2019-07-24 00:50 | NUR ---
PT OOB TO BATHROOM, ABLE TO AMBULATE WITHOUT ASSIST, NO ACUTE S/S OF DISTRESS NOTED, VSS
--- NOTE | 2019-07-24 04:30 | NUR ---
PT OOB TO BATHROOM, NO BM NOTED, VOUID WITH GAS. PT SINUS TACH @150bpm, ASSISTED PT BACK IN BED, PT DENIES PAIN OR DISCOMFORT, RHYTHM CONVERTED TO ATRIAL FLUTTER WITH HR 80-90'S, EKG OBTAINED AND IN CHART, LABS DRAWN, NOTIFIED, ORDERS RECEIVED TO CONSULT SEMICONDUCTOR PACKAGES SEALER. NO FURTHER AT THIS TIME WILL CONTINUE TO ASSESS
[2019-07-24 06:18] LABS: HEMATOCRIT 33.5 % (42.0-54.0); HEMOGLOBIN 10.9 g/dL (13.5-17.5); MCH 29.4 pg (26.0-34.0); MCHC 32.5 g/dL (31.0-37.0); MCV 90.3 fL (80.0-100.0); MEAN PLATELET VOLUME 9.9 fL (7.4-10.4); RBC 3.71 10x6/uL (4.20-6.10); RDW 15.3 % (11.5-14.5)
[2019-07-24 06:22] LABS: WBC 4.7 10x3/uL (4.8-10.8)
[2019-07-24 06:30] LABS: ALBUMIN 3.2 g/dL (3.4-5.0); ANION GAP 8.7 mmol/L (8-16); BILIRUBIN - TOTAL 0.88 mg/dL (0.2-1.3); CALCIUM 8.3 mg/dL (8.5-10.1); CARBON DIOXIDE 27.8 mmol/L (21.0-32.0); CREATININE - SERUM 1.2 mg/dL (0.6-1.3); POTASSIUM - SERUM 3.5 mmol/L (3.5-5.1); PROTEIN - SERUM 6.1 g/dL (6.4-8.2)
--- NOTE | 2019-07-24 06:45 | NUR ---
CALLED [facility] R/T CONSULT, UPDATE GIVEN ON PT, NO FURTHER AT THIS TIME, PT AAOx4 VSS, WILL NOTIFY DAY SHIFT RN
--- NOTE | 2019-07-24 08:22 | NUR ---
ASST PT OOB AND PT AMB TO BATHROOM WITH TELEMETRY.
--- NOTE | 2019-07-24 08:35 | NUR ---
UCAF HR [address] RODRIGUES. REC'D ORDERS FOR CORDARONE BOLUS AND GTT.
--- NOTE | 2019-07-24 11:18 | NUR ---
Nutrition Follow-up: S/p femoral endarterectomy on 07/22. Eating well. No N/V or sore throat. No BM but +flatus. Diet: Diabetic PO intake: 100% Wt: 273.3# Last BM: 07/21 Labs noted: Glu 140, Ca 8.3, Alb 3.2, Mg 1.7 Meds noted: HCTZ, KDur, Senokot, Colace -Continue current diet as tolerated. -RD following.
--- NOTE | 2019-07-24 19:00 | NUR ---
PT ASSESSMENT COMPLETED AT THIS TIME, NO CHANGES FOR NURSE REPORT, VSS, NO COMPLAINTS AT THIS TIME, WILL MONITOR FOR CHANGES
--- NOTE | 2019-07-24 21:00 | NUR ---
PT GIVEN 2100 MEDS, NO COMPLAINTS AT THIS TIME, VSS, NO DISTRESS NOTED
--- NOTE | 2019-07-24 23:00 | NUR ---
PT REASSESSMENT COMPLETED AT THIS TIME, NO CHANGES NOTED, VSS, NO COMPLAINTS OR DISTRESS SEEN, WILL CONT TO MONITOR
[2019-07-25] VITALS (14 sets, daily range): BP systolic 138–165; BP diastolic 62–78
--- NOTE | 2019-07-25 01:00 | NUR ---
PT RESTING WITH EYES CLOSED, RESP EVEN NON LABORED, VSS, NO DISTRESS NOTED
--- NOTE | 2019-07-25 03:00 | NUR ---
PT REASSESSMENT COMPLETED AT THIS TIME, NO CHANGES NOTED, VSS
--- NOTE | 2019-07-25 03:48 | NUR ---
PT REASSESSMENT COMPLETED AT THIS TIME, NO CHANGES NOTED, VSS, NO DISTRESS NOTED
--- NOTE | 2019-07-25 05:00 | NUR ---
PT SITTING UP IN CHAIR, NO DISTRESS NOTED, VSS AT THSI TIME
[2019-07-25 06:15] LABS: HEMATOCRIT 31.3 % (42.0-54.0); HEMOGLOBIN 10.4 g/dL (13.5-17.5); MCH 29.5 pg (26.0-34.0); MCHC 33.2 g/dL (31.0-37.0); MCV 88.9 fL (80.0-100.0); MEAN PLATELET VOLUME 8.8 fL (7.4-10.4); RBC 3.52 10x6/uL (4.20-6.10); RDW 14.9 % (11.5-14.5); WBC 4.9 10x3/uL (4.8-10.8)
[2019-07-25 06:34] LABS: ALBUMIN 2.9 g/dL (3.4-5.0); ANION GAP 11.9 mmol/L (8-16); BILIRUBIN - TOTAL 0.74 mg/dL (0.2-1.3); CALCIUM 8.3 mg/dL (8.5-10.1); CARBON DIOXIDE 27.4 mmol/L (21.0-32.0); CREATININE - SERUM 1.1 mg/dL (0.6-1.3); POTASSIUM - SERUM 3.3 mmol/L (3.5-5.1); PROTEIN - SERUM 6.2 g/dL (6.4-8.2)
--- NOTE | 2019-07-25 07:44 | NUR ---
PT UP IN CHAIR. NSR ON CM. BREAKFAST TRAY SERVED AND PT EATING W/O PROBLEMS.
[2019-07-25] MEDS ORDERED: PLAVIX75 MG PO (10:20)
[2019-07-25] MEDS ORDERED: LOPRESSOR25 MG PO (10:20)
[2019-07-25] MEDS ORDERED: K-DUR20 MEQ PO (10:21)
[2019-07-25] MEDS ORDERED: ASPIRIN EC81 M1 PO (10:21)
[2019-07-25] MEDS ORDERED: COLACE100 MG PO (10:22)
--- NOTE | 2019-07-25 11:11 | MORECARE ---
CASE MANAGEMENT DISCHARGE SUMMARY PATIENT: RODRIGUEZ BLOOM UNIT: [id number] ADM DATE: 07/22/19 AGE: 74 : 45 SEX: M ROOM/BED: D[facility] AUTHOR: ZULLYDOC PHYSICIAN: REFERRING PHYSICIAN: LUIS MERCEDES MD DATE OF SERVICE: 07/25/19 Discharge Plan Patient Name: RODRIGUEZ BLOOM Facility: [facility]:[place] : 1945 Planned Disposition: Home Anticipated Discharge Date: Discharge Date: Expected LOS: Initial Reviewer: [email or web address] Initial Review Date: 07/22/2019 Generated: 07/25/19 12:11 pm Comments DCP- Discharge Planning Updated by [email or web address]: Rosy Slaughter on 07/25/19 10:[address] Patient Name: RODRIGUEZ BLOOM Encounter No: [id number] : 1945 Primary Insurance: MEDICARE A & B Anticipated DC Date: Planned Disposition: Home External Planned Provider: : DCP follow-up note: Patient and family in agreement with discharge plan. No changes to plan. Case management will follow and assist as needed. iIMM SIGNED. Rosy Slaughter DCP- Discharge Planning Updated by [email or web address]: Roxy Smalls on 07/22/19 7:[address] Patient Name: RODRIGUEZ BLOOM Admission Status: Urgent Accout number: [id number] Admission Date: 07-22-2019 : 1945 Admission Diagnosis: Attending: LUIS MERCEDES Current LOS: 1 Anticipated DC Date: Planned Disposition: Home Primary Insurance: MEDICARE A & B Discharge Planning Comments: CM met with patient at bedside after explaining CM role and obtaining verbal consent. Patient lives at home with his Emani where he is independent with his care and plans to return there upon discharge. Patient feels this would be a safe discharge. CM discussed availability / needs of home health and medical equipment. Patient denies any discharge needs at this time. Patient states he will have his family drive him home upon discharge. CM will continue to follow and assist as needed with discharge planning / needs. Rug Hooker: Roxy Smalls DCPIA - Discharge Planning Initial Assessment Updated by [email or web address]: Roxy Smalls on 07/22/19 8:39 pm * Is the patient Alert and Oriented? Yes * How many steps to enter\exit or inside your home? * PCP MARIA R * Pharmacy [facility] * Preadmission Environment Home with Family * ADLs Independent * Equipment None * List name and contact numbers for known caregivers / representatives who currently or will assist patient after discharge: EMANI BLOOM -- [phone] OR [phone] * Verbal permission to speak to the caregivers and representatives has been obtained from the patient. Yes * Community resources currently utilized None * Additional services required to return to the preadmission environment? No * Can the patient safely return to the preadmission environment? Yes * Has this patient been hospitalized within the prior 30 days at any hospital? No Coverage Notice Reviewer: [email or web address] Eder Slaughter Notice Issued Date-Time: 07/25/2019 11:07 Notice Type: IM Discharge Notice Notice Delivered To: Patient Relationship to Patient: Medical Insurance Clerk Name: Delivery Method: HAND - Hand Delivered Nancy Days: Prior Verbal Notification: Recipient Understood Notice: Yes Recipient Signature: Yes Med Rec Note Co-signed by Attending: Coverage Notice Comment: Last DP export: 07/22/19 7:45 p Patient Name: RODRIGUEZ BLOOM Page [id number] at 1111 All edits/amendments must be made on the electronic document DICTATION DATE: 07/25/19 1111 HEAD TENNIS PROFESSIONAL: JACOBO 07/25/19 1111 RPT#: [id number] DC DATE: STATUS: ADM IN [facility] [address] [place] [address] END OF REPORT
--- NOTE | 2019-07-25 15:40 | MORECARE ---
CASE MANAGEMENT DISCHARGE SUMMARY PATIENT: RODRIGUEZ BLOOM UNIT: [id number] ADM DATE: 07/22/19 AGE: 74 : 45 SEX: M ROOM/BED: D[facility] AUTHOR: ZULLY,DOC PHYSICIAN: REFERRING PHYSICIAN: LUIS MERCEDES MD DATE OF SERVICE: 07/25/19 Discharge Plan Patient Name: RODRIGUEZ BLOOM Facility: [facility]:[place] : 1945 Planned Disposition: Home Anticipated Discharge Date: Discharge Date: 07/25/2019 Expected LOS: Initial Reviewer: [email or web address] Initial Review Date: 07/22/2019 Generated: 07/25/19 4:40 pm Comments DCP- Discharge Planning Updated by [email or web address]: Rosy Slaughter on 07/25/19 10:[address] Patient Name: RODRIGUEZ BLOOM Encounter No: [id number] : 1945 Primary Insurance: MEDICARE A & B Anticipated DC Date: Planned Disposition: Home External Planned Provider: : DCP follow-up note: Patient and family in agreement with discharge plan. No changes to plan. Case management will follow and assist as needed. iIMM SIGNED. Rosy Slaughter DCP- Discharge Planning Updated by [email or web address]: Roxy Smalls on 07/22/19 7:[address] Patient Name: RODRIGUEZ BLOOM Admission Status: Urgent Accout number: [id number] Admission Date: 07-22-2019 : 1945 Admission Diagnosis: Attending: LUIS MERCEDES Current LOS: 1 Anticipated DC Date: Planned Disposition: Home Primary Insurance: MEDICARE A & B Discharge Planning Comments: CM met with patient at bedside after explaining CM role and obtaining verbal consent. Patient lives at home with his Emani where he is independent with his care and plans to return there upon discharge. Patient feels this would be a safe discharge. CM discussed availability / needs of home health and medical equipment. Patient denies any discharge needs at this time. Patient states he will have his family drive him home upon discharge. CM will continue to follow and assist as needed with discharge planning / needs. Comb Setter: Roxy Smalls DCPIA - Discharge Planning Initial Assessment Updated by [email or web address]: Roxy Smalls on 07/22/19 8:39 pm * Is the patient Alert and Oriented? Yes * How many steps to enter\exit or inside your home? * PCP MARIA R * Pharmacy [facility] * Preadmission Environment Home with Family * ADLs Independent * Equipment None * List name and contact numbers for known caregivers / representatives who currently or will assist patient after discharge: EMANI BLOOM -- [phone] OR [phone] * Verbal permission to speak to the caregivers and representatives has been obtained from the patient. Yes * Community resources currently utilized None * Additional services required to return to the preadmission environment? No * Can the patient safely return to the preadmission environment? Yes * Has this patient been hospitalized within the prior 30 days at any hospital? No Coverage Notice Reviewer: [email or web address] Eder Slaughter Notice Issued Date-Time: 07/25/2019 11:07 Notice Type: IM Discharge Notice Notice Delivered To: Patient Relationship to Patient: Diamond Polisher Name: Delivery Method: HAND - Hand Delivered Nancy Days: Prior Verbal Notification: Recipient Understood Notice: Yes Recipient Signature: Yes Med Rec Note Co-signed by Attending: Coverage Notice Comment: Last DP export: 07/25/19 10:11 a Patient Name: RODRIGUEZ BLOOM Page [id number] at 1540 All edits/amendments must be made on the electronic document DICTATION DATE: 07/25/19 1540 TAFE REGISTRAR: JACOBO 07/25/19 1540 RPT#: [id number] DC DATE:07/25/19 STATUS: DIS IN [facility] [address] [place] [address] END OF REPORT
--- NOTE | 2019-07-27 14:22 | CN ---
PATIENT NAME:RODRIGUEZ BLOOM MEDICAL RECORD: [id number] : 45 LOCATION:[place] ADMIT DATE: 07/22/19 ACCOUNT: [id number] CONSULTING PHYSICIAN: LEO PERALTA MD REFERRING PHYSICIAN: LUIS MERCEDES MD DATE OF CONSULTATION: 07/24/2019 HISTORY OF PRESENT ILLNESS: A 74-year-old gentleman typically followed by Dr. Lyles in the office, has a history of coronary artery disease as well as peripheral vascular disease, status post intervention via Dr. Mercedes with repair of the right common iliac, right external iliac, right common femoral. He has atrial fibrillation after his bypass grafting as well, then converted to normal sinus rhythm. We are asked to see him concerning his cardiovascular status. PAST MEDICAL HISTORY: Includes: 1. History of hypertension. 2. Coronary artery disease, status post coronary artery bypass grafting as described above. 3. Hyperlipidemia. 4. Gastroesophageal reflux disease. ALLERGIES: IODINATED CONTRAST, CODEINE AND WASP STINGS. SOCIAL HISTORY: Retired, nonsmoker. He does take care of his ADLs, but no set exercise program secondary to claudication. REVIEW OF SYSTEMS: The patient reports easy bruising but reports no swollen glands. The patient reports no fever, no night sweats, no significant weight gain, no significant weight loss. No significant exercise tolerance. The patient reports no dry eyes, no irritation, no vision change. Patient reports no difficulty hearing and no ear pain. Patient reports no frequent nose bleeds or nose and sinus problems. Patient reports on arm pain on exertion. No shortness of breath while lying down. No history of heart murmur. Patient reports no cough, no wheezing or coughing up blood. Patient reports no abdominal pain, no vomiting. Normal appetite. No diarrhea and not vomiting blood. No nausea and no constipation. Patient reports no incontinence. No difficulty urinating. No hematuria. No increased frequency. Patient reports no muscle aches. No weakness, no arthralgias, no back pain. No swelling of the extremities. Patient reports no abnormal mole, no jaundice, no rashes. Reports no loss of consciousness. No weakness and no numbness. No seizures, dizziness, or headaches. The patient reports no depression, no sleep disturbance, feeling safe in a relationship and no alcohol abuse. Patient reports on fatigue. Reports no runny nose or sinus pressure. No itching, no hives, and no frequent sneezing. PHYSICAL EXAMINATION: GENERAL: Pleasant gentleman in no acute distress, appears stated age. VITAL SIGNS: Blood pressure 131/61, pulse 80 and regular at this point. HEENT: Normocephalic, atraumatic. NECK: No JVD or bruit. HEART: Regular. II/ systolic ejection murmur. LUNGS: Good air excursion. ABDOMEN: Soft, nontender. EXTREMITIES: Pulses 2+ with no edema. CONSULT REPORT [id number] RODRIGUEZ BLOOM IMPRESSION: Atrial fibrillation postop, responding nicely to a class 3 amiodarone. We will continue this agent for 8-10 weeks postop, given his previous history after a CABG. If he remains in sinus, could consider tapering this agent at that point. Given the short episode, can hold starting NOAC at this point. TRANSINT:[id number] Voice Confirmation ID: [id number] DOCUMENT ID: [id number] LEO PERALTA MD at 1422 CC: [id number] DICTATION DATE: 07/24/19 1327 TENTER FRAME BACK TENDER: 07/24/19 1341 DIS IN 07/25/19 [facility] [address] [place] [address]
--- NOTE | 2019-07-28 16:04 | EC ---
PATIENT:RODRIGUEZ BLOOM DATE OF SERVICE: 07/22/19 SEX: M MEDICAL RECORD: [id number] DATE OF : [birth year] LOCATION:[place] [address] AGE OF PATIENT: 74 ADMISSION DATE: 07/22/19 REFERRING PHYSICIAN: INTERPRETING PHYSICIAN: LEO PERALTA MD ECHOCARDIOGRAM REPORT ECHO CHARGES 4 ECHO COMPLETE Date: 07/24/19 CLINICAL DIAGNOSIS: ATRIAL FLUTTER ECHOCARDIOGRAPHIC MEASUREMENTS (adult normal given) AC root (d.<3.7cm) 2.9 cm LV Septum d (<1.2 cm> 1.1 cm Valve Excursion 1.7 cm LV Septum (systole) 1.2 cm Left Atria (s.<4.0cm> 3.8 cm LVPW d(<1.2cm) 1.0 cm RV (d.<2.3cm) 3.8 cm LVPW (sytole) 1.5 cm LV diastole(<5.6CM) 6.5 cm MV E-F(>70mm/sec) cm LV systole 5.4 cm LVOT Diameter 2.3 cm MV exc.(>10mm) cm Est.ejection fraction (50-75%) % DOPPLER: LVIT cm/sec A 97 cm/sec E 137 cm/sec LA cm/sec RVSP 30.6 mmHg LVOT 111 cm/sec AOP1/2T m/s Asc. Ao 134 cm/sec RVOT 88 cm/sec RA cm/sec PA 101 cm/sec AV Gradient Peak 7.1 mmHg AV Mean 3.7 mmHg AV Area 3.8 cm MV Gradient Peak 7.3 mmHg MV Mean 3.5 mmHg MV Area cm COMMENTS: Etched Circuit Processor: Fatou STANTON Web Operations Specialist: 3 Dr. Zhang TAPE# PACS Pericardial Effusion N DATE OF SERVICE: Adequate 2D, color flow, spectral Doppler, and M-Mode. No LVH. LV internal dimension is normal. Wall motion is normal. EF is greater than or equal to 55%. Aortic valve is tricuspid. No evidence of stenosis by Doppler interrogation. Left atrium, normal at 3.0 cm. Mitral valve shows no prolapse. Trace MR. Right-sided chambers are grossly normal. Mild TR. TRANSINT:[id number] Voice Confirmation ID: [id number] DOCUMENT ID: [id number] ECHOCARDIOGRAM REPORT [id number] RODRIGUEZ BLOOM GREGORY A MD at 1604 CC: [id number] DICTATION DATE: 07/27/19 141 PLANT CLERK: 07/27/19 1425 DIS IN 07/25/19 [facility] [address] [place] [address]
--- NOTE | 2019-08-13 12:56 | OP ---
PATIENT NAME: RODRIGUEZ BLOOM MEDICAL RECORD: [id number] :45 LOCATION:D[facility] ADMISSION DATE:07/22/19 SURGEON: LUIS NAQVI MD DATE OF OPERATION: 07/22/2019 SURGEON: Luis Naqvi MD ANESTHESIA: General, Dr. Otoole. OPERATION PERFORMED: 1. Endovascular repair of right lower extremity, right common iliac artery, right external iliac artery, right common femoral artery, and right superficial femoral artery utilizing atherectomy and stenting with angioplasty. 2. Ultrasound of left common femoral artery with micropuncture and insertion of a 4-Costa Rican sheath. 3. Retrograde left external iliac arteriogram. 4. Right common iliac arteriogram. 5. Right external iliac arteriogram. 6. Right common femoral artery arteriogram. 7. Right superficial femoral arteriogram. 8. Right popliteal arteriogram with runoff. 9. Right external iliac Diamondback atherectomy. 10. Angioplasty of 6 x 40 balloon and a 7 x 4 balloon, left external iliac artery. 11. Right common femoral artery atherectomy utilizing a Diamondback rotational atherectomy. 12. Right superficial femoral artery Diamondback atherectomy. 13. Angioplasty of the right superficial femoral artery with a 6 x 40 balloon. 14. Angioplasty of the right common femoral artery with a 6 x 40 balloon. 15. iCAST stent placement, right external iliac artery 8 x 38, two stents were used. 16. iCAST stent, right common iliac artery 10 x 38. PREOPERATIVE DIAGNOSES: Severe claudication, right lower extremity with severe atherosclerosis of the right common iliac artery, external iliac artery, common femoral artery and superficial femoral artery with life limiting claudication. POSTOPERATIVE DIAGNOSES: Severe claudication, right lower extremity with severe atherosclerosis of the right common iliac artery, external iliac artery, common femoral artery and superficial femoral artery with life limiting claudication. INDICATION FOR OPERATION: Life limiting claudication, right lower extremity. FINDINGS AT OPERATION: Contrast 270 mL. FLUOROSCOPY TIME: 31 minutes 3 seconds. ARTERIOGRAMS: 1. The retrograde left external iliac arteriogram demonstrated atherosclerosis, but no severe occlusive lesions. 2. Right common iliac artery arteriogram demonstrates stenosis in the right common iliac artery greater than 70%. 3. Right external iliac arteriogram demonstrates subtotal occlusion of the right external iliac artery with proximal stenosis at its takeoff. 4. Common femoral arteriogram demonstrates subtotal occlusion due to OPERATIVE REPORT [id number] BLOOM,RODRIGUEZ MARCELO calcification. 5. Right superficial femoral arteriogram demonstrates disease at its takeoff, but diffuse disease distally with no occlusive lesions. The popliteal arteriogram demonstrates a normal trifurcation and good runoff to the foot, status post Diamondback atherectomy of the external iliac artery demonstrated improved flow and we were able to manipulate our devices more easily. 6. Diamondback atherectomy of the common femoral artery demonstrates improved flow. 7. Right superficial femoral arteriogram demonstrates much improved flow, but suboptimal. 8. Post-angioplasty with a 6 x 40 and 7 x 40 balloon in the proximal superficial femoral artery demonstrated much improved flow with minimal residual stenosis. The common femoral artery was angioplastied as well, had a 30% remainder lesion. We did not want to place a stent in the common femoral artery, therefore this was accepted. 9. Right external iliac angioplasty and stenting with an iCAST stent 8 x 38 times 2. There was no residual stenosis and iCAST stent was then placed in the right common iliac artery with an excellent result and no residual stenosis. ESTIMATED BLOOD LOSS: Less than 20 cc. DESCRIPTION OF PROCEDURE: After informed consent, adequate preoperative medication evaluation, the patient was brought to the operating room, placed on the table in the supine position. After induction of general endotracheal anesthesia and application of appropriate monitoring devices, the left groin, right groin, and thigh were prepped and draped in a sterile field, utilizing Betadine scrub, alcohol, and Betadine solution. A Betadine-impregnated drape was also used. Ultrasound of the right groin was performed that demonstrated poor flow in the common femoral artery. Ultrasound was then performed on the left groin and the common femoral artery identified and punctured with a micropuncture technique. A 4-Costa Rican sheath was placed. This was exchanged for a 5-[place]ican sheath and a retrograde arteriogram demonstrated diffuse stenosis in the left external iliac artery, but nonsignificant at this point. Utilizing a Palmetto Advantage wire and a rim catheter, the left common iliac artery was selected. Arteriogram performed. The catheter was advanced after crossing the proximal stenosis in the external iliac artery and through the external iliac artery, arteriogram demonstrated subtotal occlusion of the mid external iliac artery. The wire was manipulated through this area and followed with a 0.035 Quick-Cross. Utilizing a [place] wire, the common femoral artery was cannulated and arteriogram performed distal to the lesion and the superficial femoral artery was then accessed and crossed utilizing a Regalia wire. The catheter was manipulated to the popliteal artery and popliteal arteriogram demonstrated good trifurcation and runoff to the foot. Exchange was made for a Viper wire. Utilizing a Diamondback atherectomy, the external iliac artery was atherectomized allowing us to pass our instruments further. Diamondback atherectomy was then performed on the superficial femoral artery at its takeoff as well as the common femoral artery. These underwent angioplasty with a low pressure balloon with an excellent result in the superficial femoral artery. The common femoral artery underwent repeat angioplasty with a 7 x 40 balloon with a good result with 30% residual stenosis. I did not want to put a stent in the common femoral artery, therefore this was accepted. The external iliac artery proximally and in its mid portion were again atherectomized by Diamondback atherectomy device. An 8 x 38 stent was then placed in the mid external iliac artery and proximal iliac artery overlapping to perform a good OPERATIVE REPORT [id number] RODRIGUEZ BLOOM channel with no residual stenosis. Attention was then turned towards the common iliac artery and an iCAST stent 10 x 38 was placed and repeat arteriogram demonstrated excellent flow through the common femoral, external iliac artery, and common iliac artery with no residual stenosis in the iliac system. The patient was given a calculated dose of protamine to reverse the heparin that was given as the first sheath was placed and an 8-C[place] Rican Angio-Seal was used in the left groin and the patient's heparin was partially reversed. The patient tolerated the procedure well and was transferred to the CV ICU in satisfactory condition. TRANSINT:[id number] Voice Confirmation ID: [id number] DOCUMENT ID: [id number] LUIS NAQVI MD at 1256 CC: [id number] DICTATION DATE: 07/22/19 1141 CONSTRUCTION SITE CROSSING GUARD: 07/22/19 1202 DIS IN 07/25/19 [facility] [id number] [place] [address]
== END 2019-07-25 13:00 | disposition home or self-care (01) | DRG 271 ==
LOC: D.SDCHOLD 07-22 05:00 → D.CVICU 07-22 05:00 → D.SDCHOLD 07-22 07:30 → D.CVICU 07-22 09:53
PROVIDERS: ADMIT Internal Medicine Cardiovascular Disease; ATTEND Internal Medicine Cardiovascular Disease
PROC: 04CF0ZZ Extirpation of Matter from Left Internal Iliac Artery, Open Approach (ICD-10-PCS; 2019-07-22)
PROC: 04CK0ZZ Extirpation of Matter from Right Femoral Artery, Open Approach (ICD-10-PCS; 2019-07-22)
PROC: 047H0DZ Dilation of Right External Iliac Artery with Intraluminal Device, Open Approach (ICD-10-PCS; principal; 2019-07-22 07:30)
PROC: 04CC0ZZ Extirpation of Matter from Right Common Iliac Artery, Open Approach (ICD-10-PCS; 2019-07-22 07:30)
PROC: 047C0DZ Dilation of Right Common Iliac Artery with Intraluminal Device, Open Approach (ICD-10-PCS; 2019-07-22 07:30)
DX: I70.213 Atherosclerosis of native arteries of extremities with intermittent claudication, bilateral legs (principal); I48.92 Unspecified atrial flutter; I48.91 Unspecified atrial fibrillation; I10 Essential (primary) hypertension

== ENCOUNTER → 2019-08-06 08:56 | Outpatient (CLI) | payer MEDICARE, OTHER ==
[2019-07-23 12:44] VITALS: BMI 39.8
[~2019-08-06 08:56] MED LIST changes: +ASPIRIN EC81 M1 PO; +FERROUS SULFAT325 MG PO; +PLAVIX75 MG PO
== END | disposition home or self-care (01) ==
LOC: D.RT 08:56
PROVIDERS: ATTEND Internal Medicine Cardiovascular Disease
DX: I70.219 Atherosclerosis of native arteries of extremities with intermittent claudication, unspecified extremity (principal); I48.0 Paroxysmal atrial fibrillation; I11.9 Hypertensive heart disease without heart failure